=== PATIENT | male | born 1935 | race Caucasian/White ===

== ENCOUNTER 2017-04-16 08:04 | Emergency (ER) ==
[2017-04-16 08:10] VITALS: BP 112/70; TEMP 98.2
--- NOTE | 2017-04-16 08:38 | ED.PDOC ---
General ED Provider: Dr. CLEVE HINES JR Chief Complaint: Non-specific Complaint Stated Complaint: seen in er yesterday didn't stay the night signed out ama. today"you can do what you need so I can go home." in due to increased swelling friend states seen [place] 3 [place] ago gave him "3 shots and the swelling would go down but it hasn't." swelling to legs and abdomen distended. lasix 40mg IM last night[End]98.2 56 16 88% 112/70 230# in er last night dx chf refused to stay. back so "you can do what you need to fix me." edema has been worsening.[ End ]voiding "all night" 286.4 pounds Time Seen by Physician: 08:38 Mode of Arrival: Wheelchair Information Source: Patient Exam Limitations: Dementia Primary Care Provider: NAZ SUTHERLAND Nursing and Triage Documentation Reviewed and Agree: No Review of Systems - Review Of Systems Constitutional: Reports: Malaise, Weakness Eyes: Reports: No symptoms Ears, Nose, Mouth, Throat: Reports: No symptoms Respiratory: Reports: Short of air Cardiac: Reports: Edema GI: Reports: Abdomen distended : Reports: No symptoms, Frequency (note given lasis) Musculoskeletal: Reports: No symptoms Skin: Reports: No symptoms, Other (edema) Neurological: Reports: Cognitive dysfunction Endocrine: Reports: No symptoms Hematologic/Lymphatic: Reports: No symptoms All Other Systems: Other Past Medical History - Past Medical History Endocrine: Reports: DM 1, Dyslipidemia Cardiovascular: Reports: Hypertension, CHF, A-Fib Respiratory: Reports: None Hematological: Reports: None Gastrointestinal: Reports: None Genitourinary: Reports: None Neuro/Psych: Reports: None Musculoskeletal: Reports: Arthritis Cancer: Reports: None - Surgical History General Surgical History: Reports: Orthopedic ( left fore foot amputation) - Family History Family History: Reports: Other - Social History Smoking Status: Former smoker Hx Substance Use: No Alcohol Screening: None Physical Exam - Physical Exam Appearance: Ill-appearing, Obese Ill-appearing: Moderate Pain Distress: Mild Eyes: NATHALIA, EOMI, Conjunctiva clear Neck: Supple Respiratory: Airway patent, Breath sounds diminished, Rhonchi Cardiovascular: Irregular rhythm GI/: Nontender Musculoskeletal: Normal strength, ROM intact, No calf tenderness, Edema Skin: Warm, Dry Neurological: Sensation intact, Motor intact, Oriented Interpretation - Radiology Interpretation Radiology Interpretation By: Radiologist Radiology Results: Positive (04/15/17 atelectasis vs pneumonia and pleural effusion) - EKG Interpretation Time of EKG #1: 08:45 Rate: Normal Rhythm: Other (afib, old imi, ami, no change since 04/15/17) Ectopy: PVCs Victor: Left ST Segment: Normal EKG Comparison: No significant changes Physician Notification - Case Discussed Physician Notified: Ryann Time of [facility]: 11:42 [facility] Critical Care Note - Critical Care Note Total Time (mins): 40 Course - Course Hematology/Chemistry: 04/16/17 08:45 04/16/17 08:45 Orders, Labs, Meds: Lab Review 04/16/17 04/16/17 04/16/17 08:29 08:45 09:17 WBC 9.81 RBC 4.33 L Hgb 12.9 L Hct 39.1 L MCV 90.3 MCH 29.8 MCHC 33.0 RDW Coeff of Fabby 17.7 H Plt Count 199 Immature Gran % (Auto) 0.6 Neut % (Auto) 68.4 Lymph % (Auto) 14.0 Cassia % (Auto) 14.6 H Eos % (Auto) 1.6 Baso % (Auto) 0.8 Immature Gran # (Auto) 0.1 Neut # 6.7 Lymph # 1.4 Cassia # 1.4 Eos # 0.2 Baso # 0.1 Puncture Site Rr O2 Saturation 91.0 L ABG pH 7.446 ABG pCO2 40.0 ABG pO2 57.0 L* ABG HCO3 27.6 H ABG Total CO2 29 H ABG Base Excess 4 H Shon Test + FiO2 % 21.0 Sodium 149 H Potassium 3.9 Chloride 104 Carbon Dioxide 29 Anion Gap 19.9 BUN 58 H Creatinine 1.64 H Estimated GFR (MDRD) 41.00 BUN/Creatinine Ratio 35.36 Glucose 65 L D Calcium 9.1 Magnesium 2.3 H Total Bilirubin 1.66 H AST 16 ALT 18 Alkaline Phosphatase 99 Total Creatine Kinase 76 Troponin I 0.0530 B-Natriuretic Peptide 1204 H Total Protein 6.4 Albumin 3.6 Globulin 2.8 Albumin/Globulin Ratio 1.29 Urine Color Urine Clarity Urine pH Ur Specific Devine Urine Protein Urine Glucose (UA) Urine Ketones Urine Blood Urine Nitrite Urine Bilirubin Urine Urobilinogen Ur Leukocyte Esterase 04/16/17 10:40 WBC RBC Hgb Hct MCV MCH MCHC RDW Coeff of Fabby Plt Count Immature Gran % (Auto) Neut % (Auto) Lymph % (Auto) Cassia % (Auto) Eos % (Auto) Baso % (Auto) Immature Gran # (Auto) Neut # Lymph # Cassia # Eos # Baso # Puncture Site O2 Saturation ABG pH ABG pCO2 ABG pO2 ABG HCO3 ABG Total CO2 ABG Base Excess Shon Test FiO2 % Sodium Potassium Chloride Carbon Dioxide Anion Gap BUN Creatinine Estimated GFR (MDRD) BUN/Creatinine Ratio Glucose Calcium Magnesium Total Bilirubin AST ALT Alkaline Phosphatase Total Creatine Kinase Troponin I B-Natriuretic Peptide Total Protein Albumin Globulin Albumin/Globulin Ratio Urine Color Yellow Urine Clarity Clear Urine pH 6.5 Ur Specific Devine 1.015 Urine Protein Negative Urine Glucose (UA) Negative Urine Ketones Negative Urine Blood Negative Urine Nitrite Negative Urine Bilirubin Negative Urine Urobilinogen 0.2 Ur Leukocyte Esterase Negative Orders Category Date Time Status ABG DRAW REQUEST Stat CARDIO 04/16/17 08:29 Completed EKG-(ED ONLY) Stat CARDIO 04/16/17 08:28 Completed ED APPLY O2 .ONCE EMERGENCY 04/16/17 08:28 Active ED HOURLY SIGN LANGUAGE INTERPRETER APPLIED .ONCE EMERGENCY 04/16/17 08:28 Active ED IV/MEDIPORT/POWERPORT .ONCE EMERGENCY 04/16/17 08:28 Active ABG Stat LAB 04/16/17 08:29 Completed B-TYPE NATRIURETIC PEPTIDE Stat LAB 04/16/17 08:45 Completed CBC W/ AUTO DIFF Stat LAB 04/16/17 08:45 Completed COMPREHENSIVE METABOLIC PANEL Stat LAB 04/16/17 08:45 Completed CREATINE KINASE Stat LAB 04/16/17 08:45 Completed MAGNESIUM Stat LAB 04/16/17 09:17 Completed TROPONIN I Stat LAB 04/16/17 08:45 Completed UA [URINALYSIS C & S IF INDICATED] Stat LAB 04/16/17 10:40 Completed 0.9 % Sodium Chloride [Saline Flush] MEDS 04/16/17 08:28 Active 1 syr IVF PRN PRN Furosemide [Lasix] MEDS 04/16/17 09:17 Discontinued 40 mg IVP ONCE STA Medications Generic Name Dose Route Start Last Admin Trade Name Freq PRN Reason Stop Dose Admin Sodium Chloride 1 syr 04/16/17 08:28 04/16/17 09:34 Saline Flush IVF 1 syr PRN PRN Administration To flush IV Discontinued Medications Generic Name Dose Route Start Last Admin Trade Name Andi PRN Reason Stop Dose Admin Furosemide 40 mg 04/16/17 09:17 04/16/17 09:33 Lasix IVP 04/16/17 09:18 40 mg ONCE STA Administration Vital Signs: Temp Pulse Resp BP Pulse Ox 04/16/17 08:06 98.2 F 56 L 16 112/70 88 L ABEL Risk Score ABEL Risk Score: Risk Score Odds of by 30D 0 0.1 (0.1-0.2) 1 0.3 (0.2-0.3) 2 0.4 (0.3-0.5) 3 0.7 (0.6-0.9) 4 1.2 (1.0-1.5) 5 2.2 (1.9-2.6) 6 3.0 (2.5-3.6) 7 4.8 (3.8-6.1) Departure - Departure Time of Disposition: 11:41 Disposition: TSF SHORT-TRM HOSP Discharge Problem: CHF (congestive heart failure) Qualifiers: Congestive heart failure type: unspecified congestive heart failure type Congestive heart failure chronicity: acute on chronic Qualifier Code: (I50.9) Heart failure, unspecified Condition: Good Pt referred to PMD for follow-up: No (patietn refuses transfer) Allergies/Adverse Reactions: Allergies lisinopril Adverse Reaction (Verified 04/16/17 08:28) Home Medications: Ambulatory Orders Acetaminophen 1,000 mg PO TID 04/15/17 Amitriptyline HCl 25 mg PO BEDTIME 04/15/17 Amlodipine Besylate [Norvasc] 10 mg PO DAILY 04/15/17 Aspirin [Aspir-Low] 81 mg PO DAILY 04/15/17 Doxazosin Mesylate [Cardura] 4 mg PO BEDTIME 04/15/17 Ferrous Sulfate [Iron] 325 mg PO BID 04/15/17 Finasteride 5 mg PO DAILY 04/15/17 Insulin Glargine,Hum.rec.anlog [Lantus] 56 unit SUBCUT BEDTIME 04/15/17 Rosuvastatin Calcium [Crestor] 5 mg PO BEDTIME 04/15/17 Torsemide [Demadex] 20 mg PO QDAC 04/15/17
[2017-04-16 08:53] LABS: BASOPHILS # (AUTO) 0.1 K/uL (0-0.2); BASOPHILS % (AUTO) 0.8 % (0.0-3.0); EOSINOPHILS # (AUTO) 0.2 K/ul (0.0-0.7); EOSINOPHILS % (AUTO) 1.6 % (0.0-7.0); HEMATOCRIT 39.1 % (42.0-52.0); HEMOGLOBIN 12.9 g/dl (14.0-18.0); IMMATURE GRANULOCYTE % (AUTO) 0.6 % (0.0-5.0); LYMPHOCYTES # (AUTO) 1.4 K/uL (0.60-3.4); MEAN CORPUSCULAR HEMOGLOBIN 29.8 pg (27.0-31.0); MEAN CORPUSCULAR VOLUME 90.3 fl (80.0-94.0); MONOCYTES # (AUTO) 1.4 K/uL (0.4-2.0); MONOCYTES % (AUTO) 14.6 (0-10); NEUTROPHILS # (AUTO) 6.7 K/ul (2.0-6.9); NEUTROPHILS % (AUTO) 68.4; PLATELET COUNT 199 10^3/uL (140-440); RED BLOOD COUNT 4.33 10^6/ul (4.70-6.10); WHITE BLOOD COUNT 9.81 K/ul (4.2-10.2)
[2017-04-16 09:03] LABS: ABG PH 7.446 (7.35-7.45)
[2017-04-16 09:07] LABS: ABG BASE EXCESS 4 (-2.0-2.0); ABG HCO3 27.6 (22.0-26.0); ABG TCO2 29 (22.0-28.0)
[2017-04-16 09:12] VITALS: BMI 39.9
[2017-04-16 09:16] LABS: ALBUMIN 3.6 g/dL (3.4-5.0); ALBUMIN/GLOBULIN RATIO 1.29; ANION GAP 19.9; BILIRUBIN,TOTAL 1.66 mg/dL (0.00-1.20); BUN/CREATININE RATIO 35.36; CALCIUM 9.1 mg/dL (8.2-10.2); CREATININE 1.64 mg/dL (0.60-1.10); POTASSIUM 3.9 mmol/L (3.5-5.1); TOTAL PROTEIN 6.4 g/dL (5.8-8.1); TROPONIN I 0.053 ng/ml (0.0000-0.4000)
[2017-04-16] MEDS: LASIX IVP STA (09:33)
[2017-04-16 11:02] LABS: BILIRUBIN,URINE Negative (NEGATIVE); KETONES,URINE Negative (NEGATIVE); LEUKOCYTE ESTERASE ,URINE Negative (NEGATIVE); NITRITE,URINE Negative (NEGATIVE); PH,URINE 6.5 (5-9); PROTEIN,URINE Negative (NEGATIVE); URINE, BLOOD Negative (NEGATIVE)
[2017-04-16 11:11] LABS: ADD URINE MICROSCOPIC NO
[2017-04-16] MEDS ORDERED: TYLENOL PO PRN (11:51)
[2017-04-16] MEDS ORDERED: LASIX IVP SCH (14:00)
[2017-04-16] MEDS ORDERED: LANTUS SUBCUT SCH (21:00)
[2017-04-16] MEDS ORDERED: CRESTOR PO SCH (21:00)
[2017-04-16] MEDS ORDERED: FERROUS SULFATE PO SCH (21:00)
[2017-04-16] MEDS ORDERED: DOXAZOSIN MESYLATE 4 MG PO SCH (21:00)
[2017-04-16] MEDS ORDERED: CARDURA PO SCH (21:00)
[2017-04-16] MEDS ORDERED: NON-FORMULARY MEDICATION (Rosuvastatin Calcium [Crestor] 5 MG) PO SCH ×22 (21:00)
[2017-04-16] MEDS ORDERED: NON-FORMULARY MEDICATION (Ferrous Sulfate [Iron] 325 MG) PO SCH ×22 (21:00)
[2017-04-16] MEDS ORDERED: ELAVIL PO SCH (21:00)
[2017-04-17] MEDS ORDERED: DEMADEX PO SCH (06:30)
[2017-04-17] MEDS ORDERED: PROSCAR PO SCH (09:00)
[2017-04-17] MEDS ORDERED: ASPIRIN EC PO SCH (09:00)
[2017-04-17] MEDS ORDERED: NORVASC PO SCH (09:00)
[2017-04-17] MEDS ORDERED: NON-FORMULARY MEDICATION (Amlodipine Besylate [Norvasc] 10 MG) PO SCH ×22 (09:00)
== END 2017-04-16 12:45 | disposition left against medical advice (07) ==
LOC: ED 08:04 → MEDSURG B 11:53 → UNDOADMIN 11:53 → ED 12:45
DX: I50.9 Heart failure, unspecified (principal); R35.0 Frequency of micturition; E10.9 Type 1 diabetes mellitus without complications; E78.5 Hyperlipidemia, unspecified; I48.91 Unspecified atrial fibrillation; I10 Essential (primary) hypertension; Z79.899 Other long term (current) drug therapy
CPT/HCPCS: 36415; 80053; 81001; 82550; 82803; 83735; 83880; 84484; 85025; 93005; 93010; 96374; 99284

== ENCOUNTER 2017-07-20 12:09 | Inpatient (IN) ==
[2017-07-20 13:14] LABS: BASOPHILS # (AUTO) 0.1 K/uL (0-0.2); BASOPHILS % (AUTO) 0.8 % (0.0-3.0); EOSINOPHILS # (AUTO) 0.2 K/ul (0.0-0.7); EOSINOPHILS % (AUTO) 1.6 % (0.0-7.0); HEMATOCRIT 42.2 % (42.0-52.0); IMMATURE GRANULOCYTE % (AUTO) 1.2 % (0.0-5.0); LYMPHOCYTES # (AUTO) 1.1 K/uL (0.60-3.4); LYMPHOCYTES % (AUTO) 10.4 (10.0-50.0); MEAN CORPUSCULAR HEMOGLOBIN 29.9 pg (27.0-31.0); MEAN CORPUSCULAR HGB CONC 33.2 (31.8-35.4); MONOCYTES # (AUTO) 1.5 K/uL (0.4-2.0); MONOCYTES % (AUTO) 13.5 (0-10); NEUTROPHILS # (AUTO) 7.9 K/ul (2.0-6.9); NEUTROPHILS % (AUTO) 72.5; PLATELET COUNT 211 10^3/uL (140-440); RED BLOOD COUNT 4.69 10^6/ul (4.70-6.10); WHITE BLOOD COUNT 10.88 K/ul (4.2-10.2)
[2017-07-20 13:30] LABS: PARTIAL THROMBOPLASTIN TIME 29.2 SEC (23.9-40.0); PROTHROMBIN TIME 13.8 SEC (9.3-11.0)
[2017-07-20 13:40] LABS: ALBUMIN 3.5 g/dL (3.4-5.0); ANION GAP 10.1; BILIRUBIN,TOTAL 1.67 mg/dL (0.00-1.20); BUN/CREATININE RATIO 25.68; CALCIUM 9.3 mg/dL (8.2-10.2); CREATININE 1.09 mg/dL (0.60-1.10); POTASSIUM 4.1 mmol/L (3.5-5.1); TROPONIN I 0.033 ng/ml (0.0000-0.4000)
--- NOTE | 2017-07-20 13:51 | US ---
EXAM: ULTRASOUND LOWER EXTREMITY VENOUS DOPPLER EXAM HISTORY: Leg pain. FINDINGS: Bilateral lower extremity venous Doppler exam. Real time dee-scale, Doppler spectral anal ysis and color-flow Doppler imaging performed. The veins targeted for evaluation include the common femoral, greater saphenous, profundus, femoral, popliteal, peroneal, anterior tibial and posterior ti bial. The evaluated veins demonstrated normal spontaneous flow and compression without evidence of thrombosis. Subcutaneous edema is apparent. IMPRESSION: No venous thrombosis identified within the areas evaluated.
--- NOTE | 2017-07-20 14:08 | CT ---
Exam: CT of the abdomen pelvis without intravenous contrast. Comparison: None available. Reason for exam: Abdominal distension. FINDINGS: Image interpretation is limited by the lack of intravenous contrast administration. There is a large right-sided and moderately sized left-sided pleural effusion with overlying atelecta sis and pneumonia. Please see CT examination of the chest performed on the same day for further nicci acterization. There is a moderate amount of intra-abdominal ascites. The liver, spleen, and pancreas appear grossly unremarkable within limitations of a noncontrasted CT examination. The gallbladder has a hazy appearance. Low density nodule is seen in the left adrenal gland measuring approximately 2 cm likely an adenoma. Nonspecific inflammatory changes are seen in the region of the melissa hepatis and proximal duodenum. No focal small bowel dilatation or transition point. The appendix is not well seen on the examination. 5.3 cm right renal hypodensity without hydronephrosis, hydroureter, or nephrolithiasis in either kidn ey. There is a [id number] amount of pelvic free fluid. No intra-abdominal free air. Diffuse anasarca is seen within the subcutaneous soft tissues. Atherosclerotic disease is seen within the aorta and distal arterial vasculature. Prominent appearing lymph nodes are seen in the para aortic and melissa hepatic regions. No suspicious appearing osteoblastic or osteolytic lesions. Degenerative disease is seen in the lumbosacral spine. Impression: 1. Large right-sided and moderately sized left-sided pleural effusions of overlying atelectasis and pneumonia. 2. Abdominal ascites of unknown etiology that is incompletely evaluated without intravenous contrast . 3. The gallbladder has a hazy appearance which may be accentuated by the abdominal ascites and lack of intravenous contrast. If clinical concern exists for gallbladder pathology, ultrasound evaluation may be performed. 4. Nonspecific inflammatory changes in the region of the proximal duodenum. Imaging findings may re present a duodenitis or enteritis. 5. Nonspecific prominent abdominal and periportal lymph nodes. Imaging findings can be seen with inf ection, inflammation, reactivity, and neoplasia. Recommend follow-up evaluation to document resoluti on 6. Anasarca and degenerative disease. Report faxed at 14 a 3 hours on 07/20/2017
--- NOTE | 2017-07-20 14:10 | CT ---
EXAM: CT ABDOMEN AND PELVIS HISTORY: Cough TECHNIQUE: CT abdomen and pelvis without intravenous contrast. Images were reconstructed using 5 mm section thickness. Reformations were prepared. COMPARISON: None FINDINGS: Heart size upper limit normal. Tiny pericardial effusion. Mild to moderate aortic atherosclerosis. Scattered nonspecific mediastinal and hilar lymph nodes. Small left pleural effusion. Moderate right pleural effusion. Bilateral adjacent airspace consolida tions are mild to moderate. Mild pulmonary vascular congestion with no noticeable central interstiti al edema. No pneumothorax. There is a 0.41 cm noncalcified nodule in the lateral left lower lobe. 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 See also same day CT abdomen and pelvis report. IMPRESSION: 1. Bilateral pleural effusions, moderate in volume on the right. Adjacent consolidations may repres ent atelectasis or pneumonia. 2. Indeterminate 0.41 cm left lung base nodule. 3. Pulmonary vascular congestion and upper limit normal heart size. 4. Nonspecific mediastinal lymph nodes.
[2017-07-20] MEDS ORDERED: LASIX IVP STA (14:25)
[2017-07-20] MEDS ORDERED: VANCOMYCIN 1 GM in SODIUM CHLORIDE 250 ML IV STA (14:27)
[2017-07-20] MEDS ORDERED: ROCEPHIN 2 GM in SODIUM CHLORIDE 100 ML IV STA (14:27)
[2017-07-20] MEDS ORDERED: HUMULIN R SUBCUT STA (14:30)
--- NOTE | 2017-07-20 14:36 | ED.PDOC ---
General ED Provider: Dr. ROSEMARIE GUARDADO Chief Complaint: Hypoglycemia Stated Complaint: hypoglycemia Time Seen by Physician: 12:10 (was found confused blood sugar was 40 ) Mode of Arrival: Ambulance Information Source: Patient, EMT Primary Care Provider: NAZ [place] Nursing and Triage Documentation Reviewed and Agree: Yes (pt stated he knew his sugar was dropping b/ he could not get to food ) Endocrine Complaint Exam - Diabetic Complication Complaint/Exam Onset/Duration: 20 min prior to arrival . arrived AOX3 Symptoms Are: Resolved Timing: Intermittent Initial Severity: Mild Current Severity: None Character: Confused Aggravating: Reports: Diet change Alleviating: Reports: Medications Associated Signs and Symptoms: Reports: Polydipsia, Polyuria, Polyphagia, Nausea. Denies: Decreased LOC, Weight loss, Abdominal pain, Vomiting, Fever, Diaphoresis, Fruity breath Related History: Reports: Similar episode, Insulin requiring Cardiac Risk Factors: Reports: DM, Elevated lipids, CHF CVA Risk Factors: Reports: DM, Hypertension, PVD Serious Bacterial Infection Risk Factors: Reports: None Related Surgical History: Reports: None Acetone on Breath: No Dry Mucous Membranes: No Kussmaul Respirations: No Glascow Coma Scale (see protocol): 15 Meningeal Signs: No Focal Weakness: None Focal Sensory Loss: None Gait: Unable Nystagmus Present: No Gag Reflex Present: Yes Babinski Sign: Negative Right, Negative Left Heel to Toe Normal: No Differential Diagnoses: Diabetic Ketoacidosis, Hyperosmolar State, Hypoglycemia , Hyperglycemia, Sepsis Quality Indicator For Non-Traumatic Chest Pain/Syncope: EKG Performed Review of Systems - Review Of Systems Constitutional: Reports: Malaise Eyes: Reports: No symptoms Ears, Nose, Mouth, Throat: Reports: No symptoms Respiratory: Reports: No symptoms Cardiac: Reports: No symptoms GI: Reports: No symptoms : Reports: No symptoms Musculoskeletal: Reports: No symptoms Skin: Reports: Other (SEE PHOTOS) Neurological: Reports: No symptoms Endocrine: Reports: No symptoms Hematologic/Lymphatic: Reports: No symptoms All Other Systems: Reviewed and Negative Past Medical History - Past Medical History Endocrine: Reports: DM 1, Dyslipidemia Cardiovascular: Reports: Hypertension, CHF, A-Fib Respiratory: Reports: None Hematological: Reports: None Gastrointestinal: Reports: None Genitourinary: Reports: None Neuro/Psych: Reports: None Musculoskeletal: Reports: Arthritis Cancer: Reports: None - Surgical History General Surgical History: Reports: Orthopedic (htn dm chol afib arth left foot partial amputation) - Family History Family History: Reports: Other - Social History Smoking Status: Former smoker Hx Substance Use: No Alcohol Screening: None Physical Exam - Physical Exam Appearance: Well-appearing, No pain distress, Well-nourished Ill-appearing: Moderate Pain Distress: Moderate (3PLUS EDEMA LOWER LEG) Eyes: NATHALIA, EOMI, Conjunctiva clear ENT: Ears normal, Nose normal, Oropharynx normal Respiratory: Airway patent, Breath sounds clear, Breath sounds equal, Respirations nonlabored Cardiovascular: RRR, Pulses normal, No rub, No murmur GI/: Soft, Nontender, No masses, Bowel sounds normal, No Organomegaly Musculoskeletal: Limited ROM (LEFT LOWER LEG AMPUTATION ) Skin: Warm, Dry, Normal color Neurological: Sensation intact, Motor intact, Reflexes intact, Cranial nerves intact, Alert, Oriented Psychiatric: Affect appropriate, Mood appropriate Interpretation - Radiology Interpretation Radiology Interpretation By: Radiologist Radiology Results: Positive (PELVIC FLUID NEGATIVE DVT) Physician Notification - Case Discussed Physician Notified: MULLEN Time of Notification: 14:39 (PT REFUSED TO BE TRANSFERED TO [facility] PRESENT ESTEPHANIA HANDLEY) Admit To: Inpatient Critical Care Note - Critical Care Note Total Time (mins): 0 Course - Course Hematology/Chemistry: 07/20/17 12:50 07/20/17 12:50 Orders, Labs, Meds: Lab Review 07/20/17 07/20/17 07/20/17 12:50 12:50 12:50 WBC 10.88 H RBC 4.69 L Hgb 14.0 Hct 42.2 MCV 90.0 MCH 29.9 MCHC 33.2 RDW Coeff of Fabby 19.9 H Plt Count 211 Immature Gran % (Auto) 1.2 Neut % (Auto) 72.5 Lymph % (Auto) 10.4 Tift % (Auto) 13.5 H Eos % (Auto) 1.6 Baso % (Auto) 0.8 Immature Gran # (Auto) 0.1 Neut # 7.9 H Lymph # 1.1 Tift # 1.5 Eos # 0.2 Baso # 0.1 PT INR APTT Sodium 140 Potassium 4.1 Chloride 107 Carbon Dioxide 27 Anion Gap 10.1 BUN 28 H Creatinine 1.09 Estimated GFR (MDRD) 65.00 BUN/Creatinine Ratio 25.68 Glucose 93 Lactic Acid 15.1 Calcium 9.3 Total Bilirubin 1.67 H AST 14 L ALT 12 Alkaline Phosphatase 143 H Total Creatine Kinase 35 Troponin I 0.0330 Total Protein 7.0 Albumin 3.5 Globulin 3.5 Albumin/Globulin Ratio 1.00 07/20/17 12:50 WBC RBC Hgb Hct MCV MCH MCHC RDW Coeff of Fabby Plt Count Immature Gran % (Auto) Neut % (Auto) Lymph % (Auto) Tift % (Auto) Eos % (Auto) Baso % (Auto) Immature Gran # (Auto) Neut # Lymph # Tift # Eos # Baso # PT 13.8 H INR 1.36 APTT 29.2 Sodium Potassium Chloride Carbon Dioxide Anion Gap BUN Creatinine Estimated GFR (MDRD) BUN/Creatinine Ratio Glucose Lactic Acid Calcium Total Bilirubin AST ALT Alkaline Phosphatase Total Creatine Kinase Troponin I Total Protein Albumin Globulin Albumin/Globulin Ratio Orders Category Date Time Status ABG DRAW REQUEST Stat CARDIO 07/20/17 14:25 Ordered EKG-(ED ONLY) Stat CARDIO 07/20/17 12:22 Completed ED ACCUCHECK ASSESSMENT .ONCE EMERGENCY 07/20/17 12:22 Active ABG Stat LAB 07/20/17 14:25 Ordered BLOOD CULTURE Stat LAB 07/20/17 12:35 Received CBC W/ AUTO DIFF Stat LAB 07/20/17 12:50 Completed COMPREHENSIVE METABOLIC PANEL Stat LAB 07/20/17 12:50 Completed CREATINE KINASE Stat LAB 07/20/17 12:50 Completed LACTIC ACID Stat LAB 07/20/17 12:50 Completed PARTIAL THROMBOPLASTIN TIME Stat LAB 07/20/17 12:50 Completed PROCALCITONIN Stat LAB 07/20/17 12:50 Received PT WITH INR Stat LAB 07/20/17 12:50 Completed TROPONIN I Stat LAB 07/20/17 12:50 Completed Amlodipine Besylate [Norvasc] MEDS 07/21/17 09:00 Ordered 10 mg PO DAILY Aspirin [Aspirin EC] MEDS 07/21/17 09:00 Ordered 81 mg PO DAILY Ceftriaxone Sodium [Rocephin] 2 gm MEDS 07/20/17 14:27 Active 0.9 % Sodium Chloride [Sodium Chloride] 100 ml IV ONCE Doxazosin Mesylate [Cardura] MEDS 07/20/17 21:00 Ordered 4 mg PO BEDTIME Furosemide [Lasix] MEDS 07/20/17 14:25 Discontinued 40 mg IVP ONCE STA Insulin Regular, Human [Humulin R] MEDS 07/20/17 14:30 Stat See Protocol SUBCUT ONCE STA Rosuvastatin Calcium [Crestor] MEDS 07/20/17 21:00 Ordered 5 mg PO BEDTIME Spironolactone [Aldactone] MEDS 07/20/17 21:00 Ordered 25 mg PO BID Torsemide [Demadex] MEDS 07/21/17 06:30 Ordered 20 mg PO QDAC Vancomycin HCl [Vancomycin] 1 gm MEDS 07/20/17 14:27 Active 0.9 % Sodium Chloride [Sodium Chloride] 250 ml IV ONCE CHEST, 1V AP ONLY Stat RADS 07/20/17 12:[address] ABDOMEN/PELVIS WO CONTRAST Stat RADS 07/20/17 12:[address] CHEST W/O CONTRAST Stat RADS 07/20/17 12:30 Completed U/S VENOUS SCAN GENNA LEGS Stat RADS 07/20/17 12:23 Completed Medications Generic Name Dose Route Start Last Admin Trade Name Freq PRN Reason Stop Dose Admin Aspirin 81 mg 07/21/17 09:00 Aspirin Ec PO DAILY [facility] Ceftriaxone Sodium 2 gm/ 100 mls @ 100 mls/hr 07/20/17 14:27 Sodium Chloride IV 07/20/17 15:26 ONCE STA Vancomycin HCl 1 gm/ Sodium 250 mls @ 250 mls/hr 07/20/17 14:27 Chloride IV 07/20/17 15:26 ONCE STA Non-Formulary Medication 10 mg 07/21/17 09:00 Amlodipine Besylate [Norvasc] PO DAILY ANGELI Non-Formulary Medication 4 mg 07/20/17 21:00 Doxazosin Mesylate [Cardura] PO BEDTIME ANGELI Non-Formulary Medication 5 mg 07/20/17 21:00 Rosuvastatin Calcium [Crestor] PO BEDTIME ANGELI Spironolactone 25 mg 07/20/17 21:00 Aldactone PO BID ANGELI Torsemide 20 mg 07/21/17 06:30 Demadex PO QDAC ANGELI Discontinued Medications Generic Name Dose Route Start Last Admin Trade Name Freq PRN Reason Stop Dose Admin Furosemide 40 mg 07/20/17 14:25 Lasix IVP 07/20/17 14:26 ONCE STA Insulin Human Regular 0 unit 07/20/17 14:30 Humulin R SUBCUT 07/20/17 14:31 ONCE STA Protocol Vital Signs: Temp Pulse Resp BP Pulse Ox 07/20/17 12:10 97.0 F L 93 H 20 148/106 H 94 L Departure - Departure Time of Disposition: 14:39 Disposition: ADMITTED INPATIENT Discharge Problem: Hypoglycemia Cellulitis Qualifiers: Site of cellulitis: extremity Site of cellulitis of extremity: lower extremity Laterality: left Qualified Code(s): L03.116 - Cellulitis of left lower limb Instructions: Cellulitis (ED) Condition: Good Pt referred to PMD for follow-up: Yes Additional Instructions: Please call your Family Physician as soon as possible to schedule a follow-up appointment. Allergies/Adverse Reactions: Allergies lisinopril Adverse Reaction (Verified 07/20/17 12:19) Home Medications: Ambulatory Orders Acetaminophen 1,000 mg PO TID 04/15/17 Amitriptyline HCl 25 mg PO BEDTIME 04/15/17 Amlodipine Besylate [Norvasc] 10 mg PO DAILY 04/15/17 Aspirin [Aspir-Low] 81 mg PO DAILY 04/15/17 Doxazosin Mesylate [Cardura] 4 mg PO BEDTIME 04/15/17 Ferrous Sulfate [Iron] 325 mg PO BID 04/15/17 Finasteride 5 mg PO DAILY 04/15/17 Insulin Glargine,Hum.rec.anlog [Lantus] 56 unit SUBCUT BEDTIME 04/15/17 Rosuvastatin Calcium [Crestor] 5 mg PO BEDTIME 04/15/17 Torsemide [Demadex] 20 mg PO QDAC 04/15/17
[2017-07-20] MEDS ORDERED: ROCEPHIN ONE (14:38)
[2017-07-20 14:39] LABS: ABG BASE EXCESS -2 (-2.0-2.0); ABG HCO3 23.5 (22.0-26.0); ABG PCO2 39.9 mmHg (35-45); ABG PH 7.378 (7.35-7.45); ABG TCO2 25 (22.0-28.0)
[2017-07-20] MEDS ORDERED: SODIUM CHLORIDE 1,000 ML IV SCH (15:00)
[2017-07-20 16:04] VITALS: BMI 33.5
[2017-07-20] MEDS ORDERED: VASOTEC IV IVP PRN (16:06)
[2017-07-20] MEDS ORDERED: TORADOL ONE (18:14)
[2017-07-20] MEDS: TORADOL IVP SCH ×2 (18:18→20:06)
[2017-07-20] MEDS: HUMULIN R SUBCUT PRN ×2 (18:56→20:06)
[2017-07-20] MEDS: CARDURA PO SCH (20:05)
[2017-07-20] MEDS: ALDACTONE PO SCH (20:06)
[2017-07-20] MEDS: CRESTOR PO SCH (20:06)
[2017-07-20] MEDS: ELIQUIS PO SCH (20:06)
[2017-07-20] MEDS ORDERED: DOXAZOSIN MESYLATE 4 MG PO SCH (21:00)
[2017-07-20] MEDS ORDERED: NON-FORMULARY MEDICATION (Rosuvastatin Calcium [Crestor] 5 MG) PO SCH ×22 (21:00)
[2017-07-20 21:33] LABS: TROPONIN I 0.025 ng/ml (0.0000-0.4000)
[2017-07-21] MEDS: TORADOL IVP SCH ×3 (04:58→20:37)
[2017-07-21 05:46] LABS: BASOPHILS # (AUTO) 0.1 K/uL (0-0.2); EOSINOPHILS # (AUTO) 0.7 K/ul (0.0-0.7); EOSINOPHILS % (AUTO) 5.9 % (0.0-7.0); HEMATOCRIT 39.4 % (42.0-52.0); HEMOGLOBIN 13.2 g/dl (14.0-18.0); IMMATURE GRANULOCYTE % (AUTO) 0.7 % (0.0-5.0); LYMPHOCYTES # (AUTO) 1.4 K/uL (0.60-3.4); LYMPHOCYTES % (AUTO) 12.1 (10.0-50.0); MEAN CORPUSCULAR HEMOGLOBIN 30.3 pg (27.0-31.0); MEAN CORPUSCULAR HGB CONC 33.5 (31.8-35.4); MEAN CORPUSCULAR VOLUME 90.6 fl (80.0-94.0); MONOCYTES # (AUTO) 1.5 K/uL (0.4-2.0); MONOCYTES % (AUTO) 13.3 (0-10); NEUTROPHILS # (AUTO) 7.7 K/ul (2.0-6.9); PLATELET COUNT 183 10^3/uL (140-440); RED BLOOD COUNT 4.35 10^6/ul (4.70-6.10); WHITE BLOOD COUNT 11.47 K/ul (4.2-10.2)
[2017-07-21] MEDS: LASIX IVP SCH (05:51)
[2017-07-21 06:16] LABS: ALBUMIN/GLOBULIN RATIO 0.97; ANION GAP 13.7; BILIRUBIN,TOTAL 1.39 mg/dL (0.00-1.20); BUN/CREATININE RATIO 28.82; CALCIUM 8.9 mg/dL (8.2-10.2); CREATININE 1.11 mg/dL (0.60-1.10); POTASSIUM 4.7 mmol/L (3.5-5.1); TOTAL PROTEIN 6.1 g/dL (5.8-8.1)
[2017-07-21 06:24] LABS: TROPONIN I 0.034 ng/ml (0.0000-0.4000)
[2017-07-21] MEDS ORDERED: DEMADEX PO SCH (06:30)
[2017-07-21] MEDS ORDERED: SILVADENE CREAM TP SCH (09:00)
[2017-07-21] MEDS ORDERED: NON-FORMULARY MEDICATION (Amlodipine Besylate [Norvasc] 10 MG) PO SCH ×22 (09:00)
[2017-07-21] MEDS ORDERED: NORVASC PO SCH (09:00)
[2017-07-21] MEDS: ROCEPHIN 1 GM in SODIUM CHLORIDE 50 ML IV SCH (09:22)
[2017-07-21] MEDS: ASPIRIN EC PO SCH (10:46)
[2017-07-21] MEDS: COZAAR PO SCH (10:47)
[2017-07-21] MEDS: ELIQUIS PO SCH ×2 (10:47→20:37)
[2017-07-21] MEDS: ALDACTONE PO SCH ×2 (10:48→20:37)
[2017-07-21] MEDS: VANCOMYCIN 1 GM in SODIUM CHLORIDE 250 ML IV SCH ×2 (10:48→20:16)
--- NOTE | 2017-07-21 11:22 | US ---
EXAM: ULTRASOUND ABDOMEN LIMITED HISTORY: Ascites FINDINGS: Ultrasound abdomen, limited. Galeas-scale ultrasound and color Doppler was performed. Live r size measures about 14 cm, within normal limits. Cirrhotic appearance of the liver without obvious focal lesion or intrahepatic biliary dilatation. The main portal vein is patent and hepatopedal. A few tiny gallstones are present. Gallbladder wall is thickened at 0.51 cm. Common bile duct diame ter upper limit normal at about 0.6 cm. There is at least a small amount of abdominal ascites. Inci dental note of a simple right renal cortical cyst measuring 5 cm. IMPRESSION: 1. Hepatic cirrhosis with ascites. 2. A few tiny gallstones. Gallbladder wall thickening is present which may be related to the patien t's liver disease or conceivably cholecystitis. Correlate clinically. Common bile duct diameter with in normal limits.
--- NOTE | 2017-07-21 13:16 | PCM.PROG ---
Attending Provider: [facility] DATE OF SERVICE: 07/21/17 SUBJECTIVE: This 82 year old WHITE/ M was hospitalized 07/20/17. The patient was admitted with hypoglycemia. He has been off Lantus and put on sliding scale. Hypoglycemia has resolved. REVIEW OF SYSTEMS: CONSTITUTIONAL: No night sweats. No fatigue, malaise, lethargy. No fever or chills. HEENT: Eyes: No visual changes. No eye pain. No eye discharge. ENT: No runny nose. No epistaxis. No sinus pain. No odynophagia. No congestion. RESPIRATORY: No cough, no congestion. No hemoptysis. No shortness of breath. CARDIOVASCULAR: No angina symptoms. No CHF symptoms. No atypical chest pain for CAD. No palpitations. No orthopnea.. GASTROINTESTINAL: No abdominal pain. No nausea or vomiting. No diarrhea or constipation. No hematemesis. No hematochezia. GENITOURINARY: No urgency. No frequency. No dysuria. No hematuria. No obstructive symptoms. No discharge. No pain. No significant abnormal bleeding. MUSCULOSKELETAL: No musculoskeletal pain; no joint swelling. NEUROLOGICAL: Awake, alert, oriented to time, place and person. No headache. No neck pain. No syncope. No seizures. No dizziness. PSYCHIATRIC: Not anxious. No depression. No suicidal thoughts. No homicidal thoughts. SKIN: No rash. Ulcerations present on admission to bilateral extremities present on admission, superficial, Stage 2. ENDOCRINE: No unexplained weight loss. No weight gain. HEMATOLOGIC/LYMPHATIC: No anemia. No purpura. No petechiae. No prolonged or excessive bleeding. No palpable lymph nodes. PHYSICAL EXAMINATION: GENERAL: The patient is awake, alert and oriented, lying in bed in no distress. VITAL SIGNS: Temperature 98.4 F, Pulse 68, Respiratory Rate 21, BP 135/70, Pulse Ox 94% HEENT: Head normocephalic, atraumatic. Eyes: Extraocular muscles are intact. Pupils are equal, round and reactive to light and accommodation. Ears: Hard of hearing. No lesions. Nose appeared normal. Throat: No exudate or erythema. NECK: Supple. No JVD, no carotid bruit. No lymphadenopathy or thyromegaly. LUNGS: Decreased breath sounds. Clear to auscultation. Percussion note normal. Chest symmetrical. HEART: S1, S2, no S3. No murmurs. No cyanosis or clubbing. Ascites positive + 2. Pulses: Dorsalis pedis and posterior tibial pulses +1 to +2 both sides. ABDOMEN: Soft. Non-tender. Bowel sounds active. No CVA tenderness. No mass felt. EXTREMITIES: +1 pedal edema, much less than before; no oozing of water. He has hyperpigmentation from chronic edema. Ulcers have been dressed and cleaned. Full range of motion of all extremities, equal. NEUROLOGIC: No focal deficit. Cranial nerves II through XII are grossly intact. No headache, no double vision or headache. SKIN: Not dry. Intact. Turgor-normal. Multiple ulcerations present on admission to right calf, left lower calf, left mid calf and left upper calf, all are clean and dressed. Hyperpigmentation is noted from chronic edema. LYMPHATIC: No palpable lymph nodes/no lymphedema. MUSCULOSKELETAL: Normal joints with no swelling. Muscle tone is normal. LAB REVIEW: 07/21/17 04:34 07/21/17 04:34 07/21/17 04:34: Sodium 141, Potassium 4.7, Chloride 108 H, Carbon Dioxide 24, Anion Gap 13.7, BUN 32 H, Creatinine 1.11 H, Estimated GFR (MDRD) 64.00, BUN/ Creatinine Ratio 28.82, Glucose 94, Calcium 8.9, Total Bilirubin 1.39 H, AST 13 L, ALT 11 L, Alkaline Phosphatase 125 H, Total Protein 6.1, Albumin 3.0 L, Globulin 3.1, Albumin/Globulin Ratio 0.97 07/21/17 04:34: WBC 11.47 H, RBC 4.35 L, Hgb 13.2 L, Hct 39.4 L, MCV 90.6, MCH 30.3, MCHC 33.5, RDW Coeff of Fabby 20.0 H, Plt Count 183, Immature Gran % (Auto) 0.7, Neut % (Auto) 67.0, Lymph % (Auto) 12.1, Den[place] % (Auto) 13.3 H, Eos % (Auto ) 5.9, Baso % (Auto) 1.0, Immature Gran # (Auto) 0.1, Neut # 7.7 H, Lymph # 1.4 , Denali # 1.5, Eos # 0.7, Baso # 0.1 07/21/17 04:34: Total Creatine Kinase 32, Troponin I 0.0340 07/20/17 20:45: Total Creatine Kinase 35, Troponin I 0.0250 ASSESSMENT: 1. Hypoglycemia 2. Peripheral arterial disease 3. Partial amputation of left foot 4. Ulcers on left leg and one ulcer on the right, more or less superficial, Stage 2 and present on admission. The legs look much better today. The ulcerations 5. Ascites with likely liver cirrhosis. No history of alcohol abuse. Likely cause is CHF and/or hepatic steatosis 6. Chronic lung disease 7. Dyslipidemia 8. Atrial fibrillation 9. Noncompliance with BMI 34 10. Hypertension PLAN: 1. T4 and TSH are normal. BUN and creatinine are acceptable. 2. Will do echo 3. A1C 4. Continue Vancomycin 1 gm twice a day 5. Continue Rocephin 1 gm daily 6. Silvadene ointment to ulcerations 7. Keep legs elevated 8. Continue Aldactone and Lasix 9. The patient is off Norvasc due to edema. He is on Cozaar. 10. Accu-cheks Plan and coordination of the patient's care discussed in the presence of Certifed Refrigeration Operator and nurse. EDUCATION: Education carried out about diabetes, ulcers, peripheral arterial disease. The patient is advised to keep the legs up. CONDITION: Stable PROGNOSIS: Poor considering noncompliance and ignorance. SCRIBED BY: FATOUMATA RECINOS Glazier Apprentice scribed while in presence of service performed by Dr. [facility]IANNI [facility] on 07/21/17 ([id number])
[2017-07-21] MEDS: HUMULIN R SUBCUT PRN ×2 (17:35→20:16)
[2017-07-21] MEDS: LOTRISONE 15 GM TP SCH (17:36)
[2017-07-21] MEDS: SILVADENE CREAM TP SCH (17:37)
[2017-07-21] MEDS: CARDURA PO SCH (20:37)
[2017-07-21] MEDS: CRESTOR PO SCH (20:37)
[2017-07-22] MEDS: TORADOL IVP SCH ×3 (04:25→20:22)
[2017-07-22 04:27] LABS: BASOPHILS # (AUTO) 0.1 K/uL (0-0.2); BASOPHILS % (AUTO) 1.4 % (0.0-3.0); EOSINOPHILS % (AUTO) 10.4 % (0.0-7.0); HEMATOCRIT 38.4 % (42.0-52.0); HEMOGLOBIN 12.6 g/dl (14.0-18.0); IMMATURE GRANULOCYTE % (AUTO) 0.6 % (0.0-5.0); LYMPHOCYTES # (AUTO) 1.7 K/uL (0.60-3.4); LYMPHOCYTES % (AUTO) 17.5 (10.0-50.0); MEAN CORPUSCULAR HEMOGLOBIN 30.1 pg (27.0-31.0); MEAN CORPUSCULAR HGB CONC 32.8 (31.8-35.4); MEAN CORPUSCULAR VOLUME 91.9 fl (80.0-94.0); MONOCYTES # (AUTO) 1.4 K/uL (0.4-2.0); MONOCYTES % (AUTO) 14.3 (0-10); NEUTROPHILS # (AUTO) 5.5 K/ul (2.0-6.9); NEUTROPHILS % (AUTO) 55.8; PLATELET COUNT 190 10^3/uL (140-440); RED BLOOD COUNT 4.18 10^6/ul (4.70-6.10); WHITE BLOOD COUNT 9.86 K/ul (4.2-10.2)
[2017-07-22 04:44] LABS: ALBUMIN 2.9 g/dL (3.4-5.0); ALBUMIN/GLOBULIN RATIO 1.07; ANION GAP 12.1; BILIRUBIN,TOTAL 1.05 mg/dL (0.00-1.20); BUN/CREATININE RATIO 30.4; CALCIUM 8.8 mg/dL (8.2-10.2); CREATININE 1.25 mg/dL (0.60-1.10); POTASSIUM 5.1 mmol/L (3.5-5.1); TOTAL PROTEIN 5.6 g/dL (5.8-8.1)
[2017-07-22] MEDS: HUMULIN R SUBCUT PRN ×4 (05:55→20:36)
[2017-07-22] MEDS: LASIX IVP SCH (05:55)
[2017-07-22] MEDS: LOTRISONE 15 GM TP SCH ×2 (05:56→17:18)
[2017-07-22] MEDS: SILVADENE CREAM TP SCH ×2 (05:56→17:18)
[2017-07-22] MEDS: ROCEPHIN 1 GM in SODIUM CHLORIDE 50 ML IV SCH (08:30)
[2017-07-22] MEDS: VANCOMYCIN 1 GM in SODIUM CHLORIDE 250 ML IV SCH ×2 (09:12→20:22)
[2017-07-22] MEDS: ELIQUIS PO SCH ×2 (09:12→20:21)
[2017-07-22] MEDS: ALDACTONE PO SCH ×2 (09:12→20:25)
[2017-07-22] MEDS: COZAAR PO SCH (09:13)
[2017-07-22] MEDS: ASPIRIN EC PO SCH (09:13)
--- NOTE | 2017-07-22 10:17 | PCM.PROG ---
Attending Provider: [facility]ENDING [facility] This patient is seen with Crystal Gayle, Nurse Practitioner. DATE OF SERVICE: 07/22/17 SUBJECTIVE: This 82 year old WHITE/ M was hospitalized 07/20/17. The patient is alert and oriented, is afebrile, lying in bed. He is eating well. REVIEW OF SYSTEMS: CONSTITUTIONAL: No night sweats. No fatigue, malaise, lethargy. No fever or chills. HEENT: Eyes: No visual changes. No eye pain. No eye discharge. ENT: No runny nose. No epistaxis. No sinus pain. No odynophagia. No congestion. RESPIRATORY: No cough, no congestion. No hemoptysis. No shortness of breath. CARDIOVASCULAR: No angina symptoms. No CHF symptoms. No atypical chest pain for CAD. No palpitations. No orthopnea.. GASTROINTESTINAL: No abdominal pain. No nausea or vomiting. No diarrhea or constipation. No hematemesis. No hematochezia. GENITOURINARY: No urgency. No frequency. No dysuria. No hematuria. No obstructive symptoms. No discharge. No pain. No significant abnormal bleeding. MUSCULOSKELETAL: No musculoskeletal pain; no joint swelling. NEUROLOGICAL: Awake, alert, oriented to time, place and person. No headache. No neck pain. No syncope. No seizures. No dizziness. PSYCHIATRIC: Not anxious. No depression. No suicidal thoughts. No homicidal thoughts. SKIN: No rash. Cellulitis bilateral lower extremities. ENDOCRINE: No unexplained weight loss. No weight gain. HEMATOLOGIC/LYMPHATIC: No anemia. No purpura. No petechiae. No prolonged or excessive bleeding. No palpable lymph nodes. PHYSICAL EXAMINATION: GENERAL: The patient is awake, alert and oriented, lying in bed in no distress. VITAL SIGNS: Temperature 98.5 F, Pulse 55, Respiratory Rate 16, BP 115/59, Pulse Ox 93% HEENT: Head normocephalic, atraumatic. Eyes: Extraocular muscles are intact. Pupils are equal, round and reactive to light and accommodation. Ears: No lesions. Nose appeared normal. Throat: No exudate or erythema. NECK: Supple. No JVD, no carotid bruit. No lymphadenopathy or thyromegaly. LUNGS: Diminished bilaterally. Clear to auscultation. Percussion note normal. Chest symmetrical. HEART: S1, S2, no S3. Heart rate is irregular consistent with atrial fib. No cyanosis or clubbing. No ascites. Pulses: Dorsalis pedis and posterior tibial pulses +1 to +2 both sides. ABDOMEN: Soft. Non-tender. Obese. Bowel sounds active. No CVA tenderness. No mass felt. EXTREMITIES: +1 pitting edema bilateral lower extremities with erythema. Blistering has improved. Full range of motion of all extremities, equal. NEUROLOGIC: No focal deficit. Cranial nerves II through XII are grossly intact. No headache, no double vision or headache. SKIN: Warm, dry and intact. Turgor-normal. Erythema bilateral lower extremities. Blistering has improved. LYMPHATIC: No palpable lymph nodes/no lymphedema. MUSCULOSKELETAL: Normal joints with no swelling. Muscle tone is normal. LAB REVIEW: 07/22/17 03:50 07/22/17 03:50 07/22/17 03:50: Sodium 141, Potassium 5.1, Chloride 107, Carbon Dioxide 27, Anion Gap 12.1, BUN 38 H, Creatinine 1.25 H, Estimated GFR (MDRD) 55.00, BUN/ Creatinine Ratio 30.40, Glucose 148 H D, Calcium 8.8, Total Bilirubin 1.05, AST 14 L, ALT 12, Alkaline Phosphatase 127 H, Total Protein 5.6 L, Albumin 2.9 L, Globulin 2.7, Albumin/Globulin Ratio 1.07 07/22/17 03:50: WBC 9.86, RBC 4.18 L, Hgb 12.6 L, Hct 38.4 L, MCV 91.9, MCH 30.1 , MCHC 32.8, RDW Coeff of Fabby 20.3 H, Plt Count 190, Immature Gran % (Auto) 0.6 , Neut % (Auto) 55.8, Lymph % (Auto) 17.5, Rich % (Auto) 14.3 H, Eos % (Auto) 10.4 H, Baso % (Auto) 1.4, Immature Gran # (Auto) 0.1, Neut # 5.5, Lymph # 1.7, Rich # 1.4, Eos # 1.0 H, Baso # 0.1 07/21/17 04:34: Hemoglobin A1c 7.5 H ASSESSMENT: 1. Hypoglycemia 2. Peripheral arterial disease 3. Partial amputation of left foot 4. Ulcers on left leg and one ulcer on the right, more or less superficial, Stage 2 and present on admission. The legs look much better today. 5. Ascites with likely liver cirrhosis. No history of alcohol abuse. Likely cause is CHF and/or hepatic steatosis 6. Chronic lung disease 7. Dyslipidemia 8. Atrial fibrillation 9. Noncompliance with BMI 34 10. Hypertension PLAN: 1. Daily weights 2. Continue iv antibiotics 3. 24 hour urine in process 4. Wound care referral made 5. Keep legs elevated Plan and coordination of the patient's care discussed in the presence of Express Clerk and nurse. CONDITION: Stable SCRIBED BY: FATOUMATA RECINOS Assistant Scientist scribed while in presence of service performed by Dr. Mullen/Crystal Gayle APRN on 07/22/17 ([id number])
[2017-07-22] MEDS: CRESTOR PO SCH (20:22)
[2017-07-22] MEDS: CARDURA PO SCH (20:22)
[2017-07-23] MEDS: HUMULIN R SUBCUT PRN ×4 (05:53→20:29)
[2017-07-23] MEDS: SILVADENE CREAM TP SCH ×2 (05:53→17:19)
[2017-07-23] MEDS: LOTRISONE 15 GM TP SCH ×2 (05:53→17:19)
[2017-07-23] MEDS: LASIX IVP SCH (05:54)
[2017-07-23] MEDS: TORADOL IVP SCH ×3 (05:54→20:29)
[2017-07-23] MEDS ORDERED: LASIX IVP STA (08:04)
[2017-07-23] MEDS: ELIQUIS PO SCH ×2 (08:13→20:30)
[2017-07-23] MEDS: COZAAR PO SCH (08:13)
[2017-07-23] MEDS: ALDACTONE PO SCH ×2 (08:13→20:30)
[2017-07-23] MEDS: ASPIRIN EC PO SCH (08:13)
[2017-07-23] MEDS: ROCEPHIN 1 GM in SODIUM CHLORIDE 50 ML IV SCH (08:14)
[2017-07-23 08:55] LABS: BASOPHILS # (AUTO) 0.1 K/uL (0-0.2); BASOPHILS % (AUTO) 1.1 % (0.0-3.0); EOSINOPHILS # (AUTO) 0.9 K/ul (0.0-0.7); EOSINOPHILS % (AUTO) 9.1 % (0.0-7.0); HEMOGLOBIN 13.3 g/dl (14.0-18.0); IMMATURE GRANULOCYTE % (AUTO) 0.6 % (0.0-5.0); LYMPHOCYTES # (AUTO) 1.8 K/uL (0.60-3.4); LYMPHOCYTES % (AUTO) 18.2 (10.0-50.0); MEAN CORPUSCULAR HEMOGLOBIN 30.2 pg (27.0-31.0); MEAN CORPUSCULAR HGB CONC 33.3 (31.8-35.4); MEAN CORPUSCULAR VOLUME 90.9 fl (80.0-94.0); MONOCYTES # (AUTO) 1.1 K/uL (0.4-2.0); MONOCYTES % (AUTO) 11.1 (0-10); NEUTROPHILS # (AUTO) 5.8 K/ul (2.0-6.9); NEUTROPHILS % (AUTO) 59.9; PLATELET COUNT 200 10^3/uL (140-440); WHITE BLOOD COUNT 9.62 K/ul (4.2-10.2)
[2017-07-23 09:13] LABS: ALBUMIN 3.1 g/dL (3.4-5.0); ALBUMIN/GLOBULIN RATIO 1.03; ANION GAP 11.5; BILIRUBIN,TOTAL 1.02 mg/dL (0.00-1.20); CALCIUM 8.8 mg/dL (8.2-10.2); CREATININE 1.25 mg/dL (0.60-1.10); POTASSIUM 5.5 mmol/L (3.5-5.1); TOTAL PROTEIN 6.1 g/dL (5.8-8.1)
--- NOTE | 2017-07-23 09:17 | PCM.PROG ---
Attending Provider: ATTENDING PROVIDER: [facility] This patient is seen with Crystal Gayle, Nurse Practitioner. DATE OF SERVICE: 07/23/17 SUBJECTIVE: This 82 year old WHITE/ M was hospitalized 07/20/17. The patient is sitting in bed, alert. Leg swelling slightly worse. REVIEW OF SYSTEMS: CONSTITUTIONAL: No night sweats. No fatigue, malaise, lethargy. No fever or chills. HEENT: Eyes: No visual changes. No eye pain. No eye discharge. ENT: No runny nose. No epistaxis. No sinus pain. No odynophagia. No congestion. RESPIRATORY: No cough, no congestion. No hemoptysis. No shortness of breath. CARDIOVASCULAR: No angina symptoms. No CHF symptoms. No atypical chest pain for CAD. No palpitations. No orthopnea.. GASTROINTESTINAL: No abdominal pain. No nausea or vomiting. No diarrhea or constipation. No hematemesis. No hematochezia. GENITOURINARY: No urgency. No frequency. No dysuria. No hematuria. No obstructive symptoms. No discharge. No pain. No significant abnormal bleeding. MUSCULOSKELETAL: No musculoskeletal pain; no joint swelling. NEUROLOGICAL: Awake, alert, oriented to time, place and person. No headache. No neck pain. No syncope. No seizures. No dizziness. PSYCHIATRIC: Not anxious. No depression. No suicidal thoughts. No homicidal thoughts. SKIN: No rash. Leg edema and redness. ENDOCRINE: No unexplained weight loss. No weight gain. HEMATOLOGIC/LYMPHATIC: No anemia. No purpura. No petechiae. No prolonged or excessive bleeding. No palpable lymph nodes. PHYSICAL EXAMINATION: GENERAL: The patient is awake, alert and oriented, lying in bed in no distress. VITAL SIGNS: Temperature 97.5 F, Pulse 62, Respiratory Rate 20, BP 127/68, Pulse Ox 95% HEENT: Head normocephalic, atraumatic. Eyes: Extraocular muscles are intact. Pupils are equal, round and reactive to light and accommodation. Ears: No lesions. Nose appeared normal. Throat: No exudate or erythema. NECK: Supple. No JVD, no carotid bruit. No lymphadenopathy or thyromegaly. LUNGS: Diminished breath sounds. Clear to auscultation. Percussion note normal. Chest symmetrical. HEART: Irregular heart rate. S1, S2, no S3. No murmurs. No cyanosis or clubbing. Mild ascites. Pulses: Dorsalis pedis and posterior tibial pulses +1 to +2 both sides. ABDOMEN: Soft. Non-tender. Bowel sounds active. No CVA tenderness. No mass felt. EXTREMITIES: +2 pitting edema bilateral lower extremities with improving erythema. Partial amputation left foot. Full range of motion of all extremities , equal. NEUROLOGIC: No focal deficit. Cranial nerves II through XII are grossly intact. No headache, no double vision or headache. SKIN: Not dry. Intact. Turgor-normal. LYMPHATIC: No palpable lymph nodes/no lymphedema. MUSCULOSKELETAL: Normal joints with no swelling. Muscle tone is normal. LAB REVIEW: 07/22/17 03:50 07/22/17 03:50 ASSESSMENT: 1. Hypoglycemia 2. Peripheral arterial disease 3. Partial amputation of left foot 4. Ulcers on left leg and one ulcer on the right, more or less superficial, Stage 2 and present on admission. The legs look much better today. 5. Ascites with likely liver cirrhosis. No history of alcohol abuse. Likely cause is CHF and/or hepatic steatosis 6. Chronic lung disease 7. Dyslipidemia 8. Atrial fibrillation 9. Noncompliance with BMI 34 10. Hypertension 11. Wound culture positive for Enterobacter Cloacae PLAN: 1. Lasix 20 mg IV, extra dose 2. CBC/CMP 3. D/C Vancomycin Plan and coordination of the patient's care discussed in the presence of Stringed Instrument Tuner and nurse. CONDITION: Stable SCRIBED BY: Paulina CHAPMAN scribed while in presence of service performed by Dr. Mullen/Crystal Gayle APRN on 07/23/17 ([id number])
[2017-07-23 13:12] LABS: URINE TOTAL PROTEIN 24 HR 5.9 mg/dL (Not Estab.)
[2017-07-23] MEDS ORDERED: KAYEXALATE SUSP PO STA (13:25)
--- NOTE | 2017-07-23 14:09 | HP ---
DATE OF SERVICE: 07/20/17 REASON FOR HOSPITALIZATION: Findings happened through routine physical in the ER like leg edema with ulcers , pleural effusion, ascites. HISTORY OF PRESENT ILLNESS: This 82-year-old white male was trying to go to the [employer] to eat, confused , was found by the [employer] and was brought to the emergency room. The patient had hypoglycemia. The patient is oriented to time, place and person. He is intelligent. He is noncompliant of his medications, doesn't know the name of the medicines. He is refusing to go to [facility] - under no circumstances he would go otherwise he would sign out. The patient has been recently hospitalized at [facility] with transdorsal amputation of the lower foot on the left in December 2016. Besides hypoglycemia, he says he is having swelling of the legs. PAST MEDICAL/SURGICAL HISTORY: Transdorsal amputation of the left foot, December 2016 Diabetes mellitus since Hypertension Dyslipidemia Anemia BPH Leg edema Leg ulcers REVIEW OF SYSTEMS: CONSTITUTIONAL: No night sweats. No fatigue, malaise, lethargy. No fever or chills. HEENT: Eyes: No visual changes. No eye pain. No eye discharge. ENT: No runny nose. No epistaxis. No sinus pain. No sore throat. No odynophagia. No ear pain. No congestion. RESPIRATORY: No cough, no congestion. No hemoptysis. No shortness of breath. CARDIOVASCULAR: No angina symptoms. No CHF symptoms. No atypical chest pain for CAD. No palpitations. No orthopnea. GASTROINTESTINAL: No abdominal pain. No nausea or vomiting. No diarrhea or constipation. No hematemesis. No hematochezia. GENITOURINARY: No urgency. No frequency. No dysuria. No hematuria. No obstructive symptoms. No discharge. No pain. No significant abnormal bleeding. MUSCULOSKELETAL: No musculoskeletal pain. No joint swelling. No arthritis. NEUROLOGICAL: No headache. No neck pain. No syncope. No seizures. No dizziness. PSYCHIATRIC: Not anxious. No depression. No suicidal thoughts. No homicidal thoughts. SKIN: No rash. ENDOCRINE: No unexplained weight loss. No weight gain. HEMATOLOGIC/LYMPHATIC: No anemia. No purpura. No petechiae. No prolonged or excessive bleeding. No palpable lymph nodes. PERSONAL/FAMILY/SOCIAL HISTORY: The patient is , lives alone. He has a woman friend (a neighbor) and she helps him out. Nonsmoker. No alcohol abuse. He was in the [employer] from 6 to 1961 in [place], never in combat. The patient states he has several children, some of them live in [facility]. MEDICATIONS: Amlodipine 10 mg p.o. daily Amitriptyline 25 mg p.o. at nighttime Tylenol 1000 mg t.i.d. Aspirin 81 mg p.o. daily Cardura 4 mg p.o. at bedtime Ferrous Sulfate 325 mg twice a day Finasteride 5 mg p.o. daily Lantus 56 units at bedtime Crestor 5 mg at bedtime Demodex 20 mg p.o. daily It is to be noted that the patient says he has been put on some new blood thinner but does not know the name. ALLERGIES: LISINOPRIL PHYSICAL EXAMINATION: GENERAL: The patient is oriented to time, place and person. VITAL SIGNS: Temperature 97, pulse 93, respiratory rate 20, BP 148/106, pulse ox 94%. HEENT: Head normocephalic, atraumatic. Eyes: Extraocular muscles are intact. Pupils are equal, round and reactive to light and accommodation. Ears: No lesions. Nose appeared normal. Throat: No exudate or erythema. NECK: Supple. No JVD, no carotid bruit. No lymphadenopathy or thyromegaly. LUNGS: Decreased breath sounds but clear to auscultation. Percussion note normal. Chest symmetrical. HEART: S1, S2, no S3. Irregular. No murmurs. No cyanosis or clubbing. Abdominal ascites +1-+2. Pulses: I don't feel any pulses in the lower extremities. Radial pulse +1 bilaterally. ABDOMEN: Soft. Nontender. Bowel sounds active. No CVA tenderness. No organomegaly. EXTREMITIES: Left foot has transdorsal amputation. Leg edema +1 to +2 non pitting and pitting with red pigmentation likely hemosideran. Two ulcers noted like square, oblong measuring 1.5 cm superficial on the back of the posterior aspect of the left lower leg, one ulcer on medial aspect which is 2" oblong in the maximum diameter on the right leg in the middle part medially. According to the patient, they were blisters with oozing of the fluid, blisters were broken and then formed ulcers. Full range of motion of all extremities, equal. NEUROLOGIC: No focal deficit. Cranial nerves II through XII are grossly intact. No headache, no double vision or headache. SKIN: Warm and dry. Intact. Turgor - normal. LYMPHATIC: No palpable lymph nodes/no lymphedema. MUSCULOSKELETAL: Normal joints with no swelling. Muscle tone is normal. LABS: Hemoglobin 14, hematocrit 42, WBC 10,800, normal differential. Creatinine 1, BUN 28, potassium 4.1. Liver profile normal. Troponin and albumin normal. INR 1.36. CT of the chest showed bilateral pleural effusion, atelectasis or pneumonia, lung nodule 0.41 cm size on left lung. Pulmonary vascular congestion noted upper limit of normal heart size, nonspecific mediastinal lymph nodes. CT of the abdomen and pelvis showed large right-sided moderately sized left-sided pleural effusion, abdominal ascites, nonspecific prominent abdominal and periportal lymph nodes, generalized anasarca noted, degenerative disk disease noted. Ultrasound of the lower extremities normal. ABG pH 7.37, p02 64, pc02 39 , percent saturation 92% on room air. Procalcitonin less than 0.05. The patient's EKG shows atrial fibrillation with rate of nearly 90 to 100/min. According to the patient, he has been put on some kind of a new blood thinner. In any case, will start patient on Eliquis 5 mg p.o. b.i.d. The patient was educated about Eliquis and explained about atrial fibrillation with multiple risk factors he has with CHADS2 VASC score being more than 5. The patient was explained about GI bleed and not to take any nonsteroidal antiinflammatory. Also explained about the complication with intracranial bleed and he has agreed to take the blood thinner Eliquis. ASSESSMENT: 1. HYPOGLYCEMIA LIKELY BECAUSE OF PATIENT'S INABILITY TO EAT ON A REGULAR BASIS BEING ON INSULIN, LANTUS 56 UNITS. 2. BILATERAL LEG EDEMA WITH POSSIBILITY OF CELLULITIS WHICH IS QUESTIONABLE WITH ULCERS WITH HISTORY OF BLISTERS LIKELY FROM PEDAL EDEMA. 3. PERIPHERAL ARTERIAL DISEASE. 4. ASCITES AND GENERALIZED ANASARCA COULD BE FROM DIFFERENT FACTORS LIKE CONGESTIVE HEART FAILURE WITH CARDIAC CIRRHOSIS AND/OR PROTEINURIA WITH NEPHROTIC SYNDROME OR COPD WITH RIGHT-SIDED FAILURE ALONG WITH LEFT-SIDED FAILURE WITH CHF. 5. HYPERTENSION. 6. DYSLIPIDEMIA 7. BPH 8. NEUROPATHY PLAN: 1. IV Lasix 40 mg now. 2. Aldactone 25 mg p.o. twice a day. 3. Elevate the legs. 4. Agreed with Rocephin-Vancomycin combination. 5. Cultures from the leg ulcers. The patient's leg ulcers are superficial. 6. Ultrasound of the liver. 7. 2D 'M' Mode to evaluate LV function. 8. BNP. 9. T4 and TSH. 10. Daily CBC, CMP 11. Discontinue Norvasc because that could contribute toward leg edema. 12. Cozaar 100 mg p.o. q.a.m. 13. IV Vasotec 0.125 for systolic blood pressure 150 q.8hourly. 14. Wound care per protocol. 15. Wound care referral to W[facility] Care Unit at [facility]. 16. Accu-Cheks with coverage. 17. Education carried out about diabetes and its complications including peripheral arterial disease ulceration. 18. The patient has no understanding of what his A1C is. The patient is not able to name his medications. The patient doesn't know who did the surgery on his leg at [facility]. He has had practially no followups and he gets all his medications refilled by [facility]. PROGNOSIS: Poor. The patient states he has several children, some of them live in [facility]. TIME SPENT: More than 70 minutes. SHAHEEN
[2017-07-23] MEDS: APRESOLINE PO SCH ×2 (14:10→20:30)
[2017-07-23] MEDS: NORVASC PO SCH (20:30)
[2017-07-23] MEDS: CARDURA PO SCH (20:30)
[2017-07-23] MEDS: CRESTOR PO SCH (20:31)
[2017-07-23] MEDS: ATIVAN PO PRN (20:31)
[2017-07-23] MEDS: DESYREL PO SCH (20:31)
[2017-07-24 05:09] LABS: BASOPHILS # (AUTO) 0.1 K/uL (0-0.2); BASOPHILS % (AUTO) 1.2 % (0.0-3.0); EOSINOPHILS # (AUTO) 0.8 K/ul (0.0-0.7); EOSINOPHILS % (AUTO) 9.2 % (0.0-7.0); HEMATOCRIT 38.5 % (42.0-52.0); HEMOGLOBIN 12.6 g/dl (14.0-18.0); IMMATURE GRANULOCYTE % (AUTO) 0.6 % (0.0-5.0); LYMPHOCYTES # (AUTO) 1.6 K/uL (0.60-3.4); LYMPHOCYTES % (AUTO) 17.4 (10.0-50.0); MEAN CORPUSCULAR HEMOGLOBIN 29.8 pg (27.0-31.0); MEAN CORPUSCULAR HGB CONC 32.7 (31.8-35.4); MONOCYTES # (AUTO) 1.2 K/uL (0.4-2.0); MONOCYTES % (AUTO) 13.5 (0-10); NEUTROPHILS # (AUTO) 5.2 K/ul (2.0-6.9); NEUTROPHILS % (AUTO) 58.1; PLATELET COUNT 185 10^3/uL (140-440); RED BLOOD COUNT 4.23 10^6/ul (4.70-6.10); WHITE BLOOD COUNT 8.99 K/ul (4.2-10.2)
[2017-07-24 05:36] LABS: ALBUMIN 2.9 g/dL (3.4-5.0); ANION GAP 12.2; BILIRUBIN,TOTAL 0.78 mg/dL (0.00-1.20); BUN/CREATININE RATIO 30.07; CALCIUM 8.7 mg/dL (8.2-10.2); CREATININE 1.33 mg/dL (0.60-1.10); POTASSIUM 5.2 mmol/L (3.5-5.1); TOTAL PROTEIN 5.8 g/dL (5.8-8.1)
[2017-07-24] MEDS: TORADOL IVP SCH ×3 (05:46→20:05)
[2017-07-24] MEDS: HUMULIN R SUBCUT PRN ×4 (05:46→20:05)
[2017-07-24] MEDS: LASIX IVP SCH (05:46)
[2017-07-24] MEDS: SILVADENE CREAM TP SCH ×3 (05:47→17:34)
[2017-07-24] MEDS: LOTRISONE 15 GM TP SCH ×3 (05:48→17:33)
[2017-07-24] MEDS: APRESOLINE PO SCH ×2 (08:33→20:04)
[2017-07-24] MEDS: ALDACTONE PO SCH ×2 (08:33→20:04)
[2017-07-24] MEDS: ROCEPHIN 1 GM in SODIUM CHLORIDE 50 ML IV SCH (08:33)
[2017-07-24] MEDS: ASPIRIN EC PO SCH (08:33)
[2017-07-24] MEDS: ELIQUIS PO SCH ×2 (08:33→20:03)
[2017-07-24] MEDS: CARDURA PO SCH (20:03)
[2017-07-24] MEDS: NORVASC PO SCH (20:03)
[2017-07-24] MEDS: CRESTOR PO SCH (20:03)
[2017-07-24] MEDS: ATIVAN PO PRN (20:04)
[2017-07-24] MEDS: DESYREL PO SCH (20:06)
[2017-07-25] MEDS: TORADOL IVP SCH ×3 (04:07→20:17)
[2017-07-25 05:26] LABS: BASOPHILS # (AUTO) 0.1 K/uL (0-0.2); BASOPHILS % (AUTO) 1.5 % (0.0-3.0); EOSINOPHILS # (AUTO) 0.7 K/ul (0.0-0.7); EOSINOPHILS % (AUTO) 7.9 % (0.0-7.0); HEMATOCRIT 38.5 % (42.0-52.0); HEMOGLOBIN 12.7 g/dl (14.0-18.0); IMMATURE GRANULOCYTE % (AUTO) 0.7 % (0.0-5.0); LYMPHOCYTES % (AUTO) 23.2 (10.0-50.0); MEAN CORPUSCULAR HEMOGLOBIN 30.2 pg (27.0-31.0); MEAN CORPUSCULAR VOLUME 91.4 fl (80.0-94.0); MONOCYTES # (AUTO) 1.1 K/uL (0.4-2.0); MONOCYTES % (AUTO) 12.8 (0-10); NEUTROPHILS # (AUTO) 4.8 K/ul (2.0-6.9); NEUTROPHILS % (AUTO) 53.9; PLATELET COUNT 177 10^3/uL (140-440); RED BLOOD COUNT 4.21 10^6/ul (4.70-6.10); WHITE BLOOD COUNT 8.81 K/ul (4.2-10.2)
[2017-07-25 05:47] LABS: ALBUMIN/GLOBULIN RATIO 0.97; ANION GAP 12.2; BILIRUBIN,TOTAL 0.89 mg/dL (0.00-1.20); BUN/CREATININE RATIO 33.06; CALCIUM 8.8 mg/dL (8.2-10.2); CREATININE 1.24 mg/dL (0.60-1.10); POTASSIUM 5.2 mmol/L (3.5-5.1); TOTAL PROTEIN 6.1 g/dL (5.8-8.1)
[2017-07-25] MEDS: LASIX IVP SCH (05:48)
[2017-07-25] MEDS: LOTRISONE 15 GM TP SCH ×2 (05:49→18:01)
[2017-07-25] MEDS: SILVADENE CREAM TP SCH ×2 (05:49→18:01)
[2017-07-25] MEDS: HUMULIN R SUBCUT PRN ×4 (06:02→20:17)
[2017-07-25] MEDS: ASPIRIN EC PO SCH (08:19)
[2017-07-25] MEDS: ELIQUIS PO SCH ×2 (08:19→20:17)
[2017-07-25] MEDS: APRESOLINE PO SCH ×2 (08:20→20:16)
[2017-07-25] MEDS: ALDACTONE PO SCH ×2 (08:20→20:16)
[2017-07-25] MEDS: ROCEPHIN 1 GM in SODIUM CHLORIDE 50 ML IV SCH (08:20)
[2017-07-25] MEDS ORDERED: KAYEXALATE SUSP PO STA (08:40)
[2017-07-25] MEDS: CARDURA PO SCH (20:15)
[2017-07-25] MEDS: NORVASC PO SCH (20:16)
[2017-07-25] MEDS: CRESTOR PO SCH (20:16)
[2017-07-25] MEDS: DESYREL PO SCH (20:16)
[2017-07-25] MEDS: ATIVAN PO PRN (20:18)
[2017-07-26] MEDS: TORADOL IVP SCH (04:44)
[2017-07-26] MEDS: LOTRISONE 15 GM TP SCH (05:43)
[2017-07-26] MEDS: LASIX IVP SCH (05:43)
[2017-07-26] MEDS: SILVADENE CREAM TP SCH (05:43)
[2017-07-26] MEDS: HUMULIN R SUBCUT PRN (05:54)
[2017-07-26] MEDS: ELIQUIS PO SCH (08:36)
[2017-07-26] MEDS: ASPIRIN EC PO SCH (08:36)
[2017-07-26] MEDS: ALDACTONE PO SCH (08:36)
[2017-07-26] MEDS: ROCEPHIN 1 GM in SODIUM CHLORIDE 50 ML IV SCH (08:36)
[2017-07-26] MEDS: APRESOLINE PO SCH (08:36)
--- NOTE | 2017-07-26 09:06 | PN ---
DATE OF SERVICE: 07/23/17 SUBJECTIVE: The patient's female friend is with him at present time. Her name is Elodia Aramis. The patient has agreed for me to talk to Elodia for any of his medical problem and discuss with him the patient's medications are taken care of by Carmelina. Again the education was carried about liver cirrhosis, peripheral arterial disease, ascites, cellulitis, leg edema and complication about diabetes. Total time spent an hours. The patient's other problem is hyperkalemia , Potassium is 5.5. PLAN: 1. The patient will be given Kayexalate 25grams. 2. Cozaar will be discontinued. 3. The patient is going to be on Norvasc and Hydralazine. 4. We will do the CBC and CMP daily. CONDITION: Stable. The patient's admission weight was incorrect. Plan and coordination of the patient's care discussed in the presence of nurse. SHAHEEN
[2017-07-26 09:28] LABS: BASOPHILS # (AUTO) 0.1 K/uL (0-0.2); BASOPHILS % (AUTO) 1.4 % (0.0-3.0); EOSINOPHILS # (AUTO) 0.5 K/ul (0.0-0.7); EOSINOPHILS % (AUTO) 6.2 % (0.0-7.0); HEMATOCRIT 38.5 % (42.0-52.0); HEMOGLOBIN 12.7 g/dl (14.0-18.0); IMMATURE GRANULOCYTE % (AUTO) 0.5 % (0.0-5.0); LYMPHOCYTES # (AUTO) 1.7 K/uL (0.60-3.4); LYMPHOCYTES % (AUTO) 20.2 (10.0-50.0); MEAN CORPUSCULAR HEMOGLOBIN 30.5 pg (27.0-31.0); MEAN CORPUSCULAR VOLUME 92.3 fl (80.0-94.0); MONOCYTES % (AUTO) 12.1 (0-10); NEUTROPHILS % (AUTO) 59.6; PLATELET COUNT 175 10^3/uL (140-440); RED BLOOD COUNT 4.17 10^6/ul (4.70-6.10); WHITE BLOOD COUNT 8.45 K/ul (4.2-10.2)
--- NOTE | 2017-07-26 09:39 | PCM.PROG ---
Attending Provider: ATTENDING PROVIDER: [facility] This patient is seen with Crystal Gayle, Nurse Practitioner. DATE OF SERVICE: 07/26/17 SUBJECTIVE: This 82 year old WHITE/ M was hospitalized 07/20/17. The patient is sitting on the side of the bed, alert. He has been up and about. He states he wants to go home today. REVIEW OF SYSTEMS: CONSTITUTIONAL: No night sweats. No fatigue, malaise, lethargy. No fever or chills. HEENT: Eyes: No visual changes. No eye pain. No eye discharge. ENT: No runny nose. No epistaxis. No sinus pain. No odynophagia. No congestion. RESPIRATORY: No cough, no congestion. No hemoptysis. No shortness of breath. CARDIOVASCULAR: No angina symptoms. No CHF symptoms. No atypical chest pain for CAD. No palpitations. No orthopnea.. GASTROINTESTINAL: No abdominal pain. No nausea or vomiting. No diarrhea or constipation. No hematemesis. No hematochezia. GENITOURINARY: No urgency. No frequency. No dysuria. No hematuria. No obstructive symptoms. No discharge. No pain. No significant abnormal bleeding. MUSCULOSKELETAL: No musculoskeletal pain; no joint swelling. NEUROLOGICAL: Awake, alert, oriented to time, place and person. No headache. No neck pain. No syncope. No seizures. No dizziness. PSYCHIATRIC: Not anxious. No depression. No suicidal thoughts. No homicidal thoughts. SKIN: No rash. No lesions. No wounds. Bilateral lower extremity redness and improving edema. ENDOCRINE: No unexplained weight loss. No weight gain. HEMATOLOGIC/LYMPHATIC: No anemia. No purpura. No petechiae. No prolonged or excessive bleeding. No palpable lymph nodes. PHYSICAL EXAMINATION: GENERAL: The patient is awake, alert and oriented, lying in bed in no distress. VITAL SIGNS: Temperature 98.4 F, Pulse 60, Respiratory Rate 21, BP 138/66, Pulse Ox 93% HEENT: Head normocephalic, atraumatic. Eyes: Extraocular muscles are intact. Pupils are equal, round and reactive to light and accommodation. Ears: No lesions. Nose appeared normal. Throat: No exudate or erythema. NECK: Supple. No JVD, no carotid bruit. No lymphadenopathy or thyromegaly. LUNGS: Diminished breath sounds. Clear to auscultation. Percussion note normal. Chest symmetrical. HEART: S1, S2, no S3. Irregular heart rate. No ascites. Pulses: Dorsalis pedis and posterior tibial pulses +1 to +2 both sides. ABDOMEN: Soft. Non-tender. Bowel sounds active. No CVA tenderness. No mass felt. EXTREMITIES: Chronic erythema due to chronic leg edema and PVD. Turgor-normal. Trace edema left lower extremity. No edema right lower extremity. Full range of motion of all extremities, equal. NEUROLOGIC: No focal deficit. Cranial nerves II through XII are grossly intact. No headache, no double vision or headache. SKIN: Ulcerations, scabbed, no drainage. No signs or symptoms of infection. LYMPHATIC: No palpable lymph nodes/no lymphedema. MUSCULOSKELETAL: Normal joints with no swelling. Muscle tone is normal. LAB REVIEW: 07/25/17 05:22 07/25/17 05:22 ASSESSMENT: 1. Hyperkalemia 2. Peripheral arterial disease 3. Partial amputation of left foot 4. Ulcers on left leg and one ulcer on the right, more or less superficial, Stage 2 and present on admission. The legs look much better today. 5. Ascites with likely liver cirrhosis. No history of alcohol abuse. Likely cause is CHF and/or hepatic steatosis 6. Chronic lung disease 7. Dyslipidemia 8. Atrial fibrillation 9. Noncompliance with BMI 34 10. Hypertension 11. Wound culture positive for Enterobacter Cloacae PLAN: 1. Possible discharge today. 2. If discharged, Keflex 500 mg t.i.d. for 7 days. 3. Bactroban ointment b.i.d. for 2 days. 4. Continue medications as given here. 5. Appointment with Wound Care - Wound Care is to set up. 6. Discharge back to PCP which is [facility]. Plan and coordination of the patient's care discussed in the presence of Rail Splitter and nurse. CONDITION: Stable SCRIBED BY: Paulina CHAPMAN scribed while in presence of service performed by Dr. Mullen/Crystal Gayle APRN on 07/26/17 (1120)
[2017-07-26 09:52] VITALS: BP 138/64; TEMP 97.9
[2017-07-26 09:52] LABS: ALBUMIN 3.1 g/dL (3.4-5.0); ALBUMIN/GLOBULIN RATIO 1.03; ANION GAP 12.1; BILIRUBIN,TOTAL 0.95 mg/dL (0.00-1.20); BUN/CREATININE RATIO 28.57; CREATININE 1.33 mg/dL (0.60-1.10); POTASSIUM 5.1 mmol/L (3.5-5.1); TOTAL PROTEIN 6.1 g/dL (5.8-8.1)
--- NOTE | 2017-07-26 10:18 | CM.DICTOOL ---
ADMISSION: 07/20/17 15:01 DISCHARGE: 07/26/17 FINAL DIAGNOSIS Cellulitis (Acute) Hypoglycemia (Acute) HISTORY OF: DM TYPE 1 DYSLIPIDEMIA HYPERTENSION CHF A-FIB ARTHRITIS PAD SURGICAL HISTORY: PARTIAL AMPUTATION OF LEFT FOOT LAST VITALS Temp Pulse Resp BP Pulse Ox 98.4 F 60 21 138/66 93 L 07/26/17 05:33 07/26/17 05:33 07/26/17 05:33 07/26/17 05:33 07/26/17 05:33 ACTIVE MEDICATIONS Amlodipine Besylate (Norvasc) 5 mg PO BEDTIME [facility] Last Admin: 07/25/17 20:16 Dose: 5 mg Apixaban (Eliquis) 5 mg PO BID [facility] Last Admin: 07/26/17 08:36 Dose: 5 mg Aspirin (Aspirin Ec) 81 mg PO DAILYWM [facility] Last Admin: 07/26/17 08:36 Dose: 81 mg Clotrimazole (Lotrisone 15 Gm) 1 applic TP 0600,1800 [facility] Last Admin: 07/26/17 05:43 Dose: 1 applic Doxazosin Mesylate (Cardura) 4 mg PO BEDTIME [facility] Last Admin: 07/25/17 20:15 Dose: 4 mg Hydralazine HCl (Apresoline) 25 mg PO Q12HR [facility] Last Admin: 07/26/17 08:36 Dose: 25 mg Rosuvastatin Calcium (Crestor) 5 mg PO BEDTIME [facility] Last Admin: 07/25/17 20:16 Dose: 5 mg Spironolactone (Aldactone) 25 mg PO BID [facility] Last Admin: 07/26/17 08:36 Dose: 25 mg Trazodone HCl (Desyrel) 50 mg PO BEDTIME [facility] Last Admin: 07/25/17 20:16 Dose: 50 mg LASIX 40MG PO DAILY LAST AMDIN: 07/26/17 40MG IV AT 0900 ALLERGIES lisinopril Adverse Reaction (Verified 07/20/17 12:19) NEW PRESCRIPTIONS: NEW MEDICATIONS: 1. KEFLEX 500MG TAKE 1 BY MOUTH 3 TIMES A DAY FOR 7 DAYS UNTIL ALL GONE. 2. BACTROBAN APPLY TO WOUNDS 2 TIMES A DAY FOR 14 DAYS. 3. APRESOLINE 25MG TAKE 1 TABLET BY MOUTH 2 TIMES A DAY 4. TRAZODONE 50MG TAKE 1 TABLET AT BEDTIME 5. ELIQUIS 5MG TAKE 1 TABLET 2 TIMES A DAY 6. LASIX 40MG PO DAILY SMOKING: N/A DISEASE SPECIFIC EDUCATION: MEDICATIONS WOUND CARE KEEPING LEGS ELEVATED FOLLOW UP APPOINTMENTS LAB REVIEW: 07/25/17 05:22 07/25/17 05:22 PLAN: DISCHARGE HOME. CONTINUE HOME MEDICATIONS PER NURSING SHEET WITH FOLLOWING CHANGES: 1. DECREASE NORVASC TO 5MG DAILY - TAKE 1/2 OF YOUR TABLET 2. INCREASE ALDACTONE TO 25MG 2 TIMES A DAY - TAKE 1 IN AM AND 1 AT BEDTIME OF YOUR TABLETS. 3. DO NOT TAKE XARELTO 4. DO NOT TAKE AMOXICILLIN/POTASSIUM CLAV NEW MEDICATIONS: 1. KEFLEX 500MG TAKE 1 BY MOUTH 3 TIMES A DAY FOR 7 DAYS UNTIL ALL GONE. 2. BACTROBAN APPLY TO WOUNDS 2 TIMES A DAY FOR 14 DAYS. 3. APRESOLINE 25MG TAKE 1 TABLET BY MOUTH 2 TIMES A DAY 4. TRAZODONE 50MG TAKE 1 TABLET AT BEDTIME 5. ELIQUIS 5MG TAKE 1 TABLET 2 TIMES A DAY 6. LASIX 40MG PO DAILY [facility] HAS BEEN NOTIFIED OF YOUR DISCHARGE. [facility] WILL CALL YOU WITH AN APPOINTMENT DATE AND TIME. KEEP YOUR APPOINTMENT ON 07/28/17 WITH YOUR PRIMARY CARE PHYSICIAN KEEP SCHEDULED APPOINTMENT WITH DR. BAEZ. CLEAN WOUNDS WITH MILD SOAP AND WATER. DRY THOROUGHLY. APPLY BACTROBAN 2 TIMES A DAY. SITTING ON SIDE OF BED. ALERT AND ORIENTED X 4. Duane PEREZ APRN INTO SEE PATIENT. PATIENT STATES FEELING BETTER AND IS READY TO GO HOME. PLAN OF CARE DISCUSSED PER Duane PEREZ APRN INCLUDING POSSIBLE DISCHARGE INSTRUCTIONS OF MEDICATIONS, WOUND CARE, KEEPING LEGS ELEVATED AND FOLLOW UP APPOINTMENTS. PATIENT VERBALIZES UNDERSTANDING AND AGREEMENTS. APPETITE IS GOOD. REMAINS ON 1500ML FLUID RESTRICTION. VITAL SIGNS ARE STABLE. IS AFEBRILE. POS 93% ON ROOM AIR. HEART TONES ARE IRREGULAR WITH TELEMETRY REVEALING A-FIB. LUNGS ARE CLEAR WITH DIMINISHED BREATH SOUNDS. NO COUGH NOTED. ABDOMEN IS ROUNDED, NON-TENDER WITH BOWEL SOUNDS POSITIVE IN ALL 4 QUADS. IS UNABLE TO LIE FLAT DUE TO ABDOMEN PUTTING PRESSURE AND CAUSING DYSPNEA. LAST BM 07/25. PEDAL PULSES ARE POSITIVE WITH TRACE EDEMA TO LEFT LOWER EXTREMITY AND NO EDEMA NOTED TO RIGHT LOWER EXTREMITY. ENCOURAGED TO KEEP LEGS ELEVATED MUCH POSSIBLE. WOUNDS: LEFT LOWER CALF A STAGE 2 MEASURING 7CM/2CM. IS PINK AND EDEMATOUS WITH NO DRAINAGE NOTED. AREA IS SCABBED. LEFT MID CALF A STAGE 2 MEASURING 3CM/3CM. IS PINK AND EDEMATOUS WITH NO DRAINAGE NOTED. AREA IS SCABBED. LEFT UPPER CALF A STAGE 2 MEASURING 3CM/4CM. IS BRIGHT RED AND EDEMATOUS WITH SEROSANGUINEOUS DRAINAGE NOTED. RIGHT UPPER CALF A STAGE 2 MEASURING 5CM/5.5CM. IS PINK/DARK RED AND EDEMATOUS WITH SEROSANGUINEOUS DRAINAGE NOTED. HAS SALINE IN LEFT FOREARM SITE IS CLEAR. IS STANDBY ASSIST WITH STRAIGHT CANE. DR. GIANNI MULLEN MD Duane PEREZ APRN
--- NOTE | 2017-07-26 11:44 | PN ---
DATE OF SERVICE: 07/25/17 SUBJECTIVE: 82 year old white male hospitalized with ulcers in the legs, peripheral arterial disease, ascites with liver cirrhosis. The patient eat a lot and drinks a lot of fluid. It is still explained about liver cirrhosis and ascites and advised to cut down on his fluid intake which is noncompliant. REVIEW OF SYSTEMS: CONSTITUTIONAL: No night sweats. No fatigue, malaise, lethargy. No fever or chills. Says that he is feeling a lot better. HEENT: Eyes: No visual changes. No eye pain. No eye discharge. ENT: No runny nose. No epistaxis. No sinus pain. No sore throat. No odynophagia. No congestion. RESPIRATORY: No cough, no congestion. No hemoptysis. No shortness of breath. CARDIOVASCULAR: No angina symptoms. No CHF symptoms. No atypical chest pain for CAD. No palpitations. No orthopnea. GASTROINTESTINAL: No abdominal pain. No nausea or vomiting. No diarrhea or constipation. No hematemesis. No hematochezia. GENITOURINARY: No urgency. No frequency. No dysuria. No hematuria. No obstructive symptoms. No discharge. No pain. No significant abnormal bleeding. MUSCULOSKELETAL: No musculoskeletal pain; no joint swelling. NEUROLOGICAL: No headache. No neck pain. No syncope. No seizures. No dizziness. PSYCHIATRIC: Not anxious. No depression. No suicidal thoughts. No homicidal thoughts. SKIN: No rash. No lesions. No wounds. ENDOCRINE: No unexplained weight loss. No weight gain. HEMATOLOGIC/LYMPHATIC: No anemia. No purpura. No petechiae. No prolonged or excessive bleeding. No palpable lymph nodes. PHYSICAL EXAMINATION: GENERAL: The patient is oriented to time, place and person. VITAL SIGNS: Temperature 97.9, pulse 60, respiratory rate 16, blood pressure 142/69 and pulse ox 92% on room air. HEENT: Head normocephalic, atraumatic. Eyes: Extraocular muscles are intact. Pupils are equal, round and reactive to light and accommodation. Ears: No lesions. Nose appeared normal. Throat: No exudate or erythema. NECK: Supple. No JVD, no carotid bruit. No lymphadenopathy or thyromegaly. LUNGS: Decreased breath sounds but clear. Percussion note normal. Chest symmetrical. HEART: S1, S2, no S3. No murmurs. No cyanosis or clubbing. No ascites. Pulses: Dorsalis pedis and posterior tibial pulses +1 to +2 both sides. ABDOMEN: Soft. Nontender. Bowel sounds active. No CVA tenderness. No mass felt. EXTREMITIES: No edema. Full range of motion of all extremities, equal. NEUROLOGIC: No focal deficit. Cranial nerves II through XII are grossly intact. No headache, no double vision or headache. SKIN: Not dry. Intact. Turgor - normal. LYMPHATIC: No palpable lymph nodes/no lymphedema. MUSCULOSKELETAL: Normal joints with no swelling. Muscle tone is normal. LABS: Hgb 12.7, hct 38, potassium 5.2, creatinine 1.2, BUN 41. ASSESSMENT: 1. Liver cirrhosis with ascites, stable. He doesn't seem to be losing too much ascitic fluid. 2. He is noncompliant. PLAN: 1. Advised to put the legs up 2. Continue Aldactone and Lasix. Lasix to given IV 3. Kidney functions have become a little bit abnormal from aggressive diuretic therapy. 4. His blood sugars are also fluctuating but he is more or less under control with sliding scale 5. Again discussed about liver cirrhosis and prognosis. 6. His blood pressure seems to be under control 7. Kayexalate will given 25 grams 8. The patient has been taken off of Cozaar, Norvasc and Hydralazine. 9. Blood pressure seems to be well controlled. CONDITION: Stable. TIME SPENT: More than 30 minutes. Plan and coordination of the patient's care discussed in the presence of nurse. SHAHEEN
--- NOTE | 2017-07-26 11:49 | PN ---
DATE OF SERVICE: 07/24/17 SUBJECTIVE: 82 year old white male hospitalized with cellulitis of both lower extremities, likely it was more like edema with pigmentation. Dermitis with irritation of the skin. The patient ulcers are drying up and they are superficial. Explained to him about how to take care of the ulcers. He is be referred to Wound Care along with the followup with [facility] where his primary physician's are. REVIEW OF SYSTEMS: CONSTITUTIONAL: No night sweats. No fatigue, malaise, lethargy. No fever or chills. HEENT: Eyes: No visual changes. No eye pain. No eye discharge. ENT: No runny nose. No epistaxis. No sinus pain. No sore throat. No odynophagia. No congestion. RESPIRATORY: No cough, no congestion. No hemoptysis. No shortness of breath. CARDIOVASCULAR: No angina symptoms. No CHF symptoms. No atypical chest pain for CAD. No palpitations. No orthopnea. GASTROINTESTINAL: No abdominal pain. No nausea or vomiting. No diarrhea or constipation. No hematemesis. No hematochezia. GENITOURINARY: No urgency. No frequency. No dysuria. No hematuria. No obstructive symptoms. No discharge. No pain. No significant abnormal bleeding. MUSCULOSKELETAL: No musculoskeletal pain; no joint swelling. NEUROLOGICAL: No headache. No neck pain. No syncope. No seizures. No dizziness. PSYCHIATRIC: Not anxious. No depression. No suicidal thoughts. No homicidal thoughts. SKIN: No rash. No lesions. No wounds. ENDOCRINE: No unexplained weight loss. No weight gain. HEMATOLOGIC/LYMPHATIC: No anemia. No purpura. No petechiae. No prolonged or excessive bleeding. No palpable lymph nodes. PHYSICAL EXAMINATION: HEENT: Head normocephalic, atraumatic. Eyes: Extraocular muscles are intact. Pupils are equal, round and reactive to light and accommodation. Ears: No lesions. Nose appeared normal. Throat: No exudate or erythema. NECK: Supple. No JVD, no carotid bruit. No lymphadenopathy or thyromegaly. LUNGS: Clear to auscultation. Percussion note normal. Chest symmetrical. HEART: S1, S2, no S3. No murmurs. No cyanosis or clubbing. No ascites. Pulses: Dorsalis pedis and posterior tibial pulses +1 to +2 both sides. ABDOMEN: Soft. Nontender. Bowel sounds active. No CVA tenderness. No mass felt. EXTREMITIES: No edema. Full range of motion of all extremities, equal. NEUROLOGIC: No focal deficit. Cranial nerves II through XII are grossly intact. No headache, no double vision or headache. SKIN: Not dry. Intact. Turgor - normal. LYMPHATIC: No palpable lymph nodes/no lymphedema. MUSCULOSKELETAL: Normal joints with no swelling. Muscle tone is normal. LABS: Hgb 12.7, hct 38, WBC 8,800 normal differential, creatinine 1.2. ASSESSMENT: 1. Liver cirrhosis with ascites, stable PLAN: 1. Continue IV Lasix and Aldactone 2. Watch for potassium 3. Educated him about ulcers, ulcers healing up and is going to take awhile 4. The patient needs arterial studies. 5. Ammonia level was acceptable 6. The patient is going to do echocardiogram to evaluate LV function. CONDITION: Stable. TIME SPENT: More than 30 minutes. Plan and coordination of the patient's care discussed in the presence of nurse. SHAHEEN
--- NOTE | 2017-07-27 11:02 | PN ---
DATE OF SERVICE: 07/22/17 SUBJECTIVE: This is an 82-year-old white male hospitalized with hypoglycemia. The patient has several other problems like foot ulcers, cellulitis, possible lower leg ascites with liver cirrhosis. The patient's condition seems to be improving. The liver showed cirrhosis of the liver. 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 I discussed with the patient. The patient is hard of hearing. REVIEW OF SYSTEMS: CONSTITUTIONAL: No night sweats. No fatigue, malaise, lethargy. No fever or chills. HEENT: Eyes: No visual changes. No eye pain. No eye discharge. ENT: No runny nose. No epistaxis. No sinus pain. No sore throat. No odynophagia. No congestion. RESPIRATORY: No cough, no congestion. No hemoptysis. No shortness of breath. CARDIOVASCULAR: No angina symptoms. No CHF symptoms. No atypical chest pain for CAD. No palpitations. No orthopnea. GASTROINTESTINAL: No abdominal pain. No nausea or vomiting. No diarrhea or constipation. No hematemesis. No hematochezia. GENITOURINARY: No urgency. No frequency. No dysuria. No hematuria. No obstructive symptoms. No discharge. No pain. No significant abnormal bleeding. MUSCULOSKELETAL: No musculoskeletal pain; no joint swelling. NEUROLOGICAL: No headache. No neck pain. No syncope. No seizures. No dizziness. PSYCHIATRIC: Not anxious. No depression. No suicidal thoughts. No homicidal thoughts. SKIN: No rash. No lesions. No wounds. ENDOCRINE: No unexplained weight loss. No weight gain. HEMATOLOGIC/LYMPHATIC: No anemia. No purpura. No petechiae. No prolonged or excessive bleeding. No palpable lymph nodes. PHYSICAL EXAMINATION: GENERAL: The patient is oriented to time, place and person. VITAL SIGNS: Temperature 98.5, pulse 55, respiratory rate 16, BP 115/59, pulse ox 93%. HEENT: Head normocephalic, atraumatic. Eyes: Extraocular muscles are intact. Pupils are equal, round and reactive to light and accommodation. Ears: No lesions. Nose appeared normal. Throat: No exudate or erythema. NECK: Supple. No JVD, no carotid bruit. No lymphadenopathy or thyromegaly. LUNGS: Decreased breath sounds. Clear to auscultation. Percussion note normal. Chest symmetrical. HEART: S1, S2, no S3. No murmurs. No cyanosis or clubbing. No ascites. Pulses: Dorsalis pedis and posterior tibial pulses +1 to +2 both sides. ABDOMEN: Soft. Nontender. Bowel sounds active. No CVA tenderness. No mass felt. EXTREMITIES: Trace edema noted. The color of the lower extremity looks a lot better. Transdorsal amputation of the left foot noted. Full range of motion of all extremities, equal. NEUROLOGIC: No focal deficit. Cranial nerves II through XII are grossly intact. No headache, no double vision or headache. SKIN: Not dry. Intact. Turgor - normal. LYMPHATIC: No palpable lymph nodes/no lymphedema. MUSCULOSKELETAL: Normal joints with no swelling. Muscle tone is normal. LABS: Hemoglobin 12.6, hematocrit 38, WBC 9,800, normal differential. Kidney function is 1.238, seems to have improved. ASSESSMENT: 1. CELLULITIS OF THE LOWER EXTREMITY 2. HYPOGLYCEMIA RIGHT NOW COVERED WITH SLIDING SCALE 3. ASCITES WITH LIVER CIRRHOSIS 4. CONGESTIVE HEART FAILURE 5. ATRIAL FIBRILLATION PLAN: Atrial fibrillation discussed with the patient. CHADS2 score is more than 5. Strongly advised to take Eliquis. The patient is followed by [facility], strongly advised to followup with them. After discharge, the patient is strongly advised to followup with Wound Care. We are going to set up the appointment. CONDITION: Stable. EDUCATION CARRIED OUT ABOUT: Complications of diabetes mellitus, peripheral arterial disease. Also discussed about eyes and effect of diabetes on the eyes. CHF discussed. Liver cirrhosis complications discussed. Also will do ammonia level as baseline. CONDITION: Stable. TIME SPENT: More than 30 minutes. Plan and coordination of the patient's care discussed in the presence of nurse. SHAHEEN
--- NOTE | 2017-07-27 11:05 | PN ---
CODING FOR BILLIN07/21/17 AND 07/22/17 - THE PATIENT IS EXTENSIVE FOR THESE DATES. THE PATIENT WAS HOSPITALIZED ON 07/20. TIME SPENT MORE THAN 60 MINUTES. SHAHEEN
--- NOTE | 2017-07-27 13:39 | PN ---
DATE OF SERVICE: 07/23/17 The patient's weight done on admission is incorrect. According to that weight, the patient has gained 20 lbs (which he has not) and on the contrary, patient's ascites is much less, is leg edema is much less and is feeling better. The weight on admission was incorrect! MTDD
--- NOTE | 2017-07-27 15:56 | DS ---
DATE OF SERVICE: 07/26/17 FINAL DIAGNOSIS: 1. HYPOGLYCEMIA 2. LIVER CIRRHOSIS WITH ASCITES 3. DERMATITIS WITH BILATERAL DEPENDENT EDEMA AND ULCERS IN BOTH LEGS ( POSSIBLE CELLULITIS) 4. DILATED CARDIOMYOPATHY 5. DIABETES MELLITUS TYPE 2 6. DYSLIPIDEMIA 7. HYPERTENSION 8. ATRIAL FIBRILLATION 9. PAD 10. GENERALIZED OSTEOARTHRITIS 11. PARTIAL AMPUTATION LEFT FOOT 12. COPD DISCHARGE INSTRUCTIONS: Followup appointment: Keep appointment on 07/28/17 with your primary care physician. Keep scheduled appointment with Dr. Eldridge. Clean wounds with mild soap and water. Dry thoroughly, apply Bactroban two times a day. MEDICATIONS AT DISCHARGE: Norvasc 5 mg p.o. bedtime ANGELI Eliquis 5 mg p.o. b.i.d. ANGELI Aspirin 81 mg p.o. daily with meal ANGELI Lotrisone 15 gm one application TP 0600, 1800 ANGELI Cardura 4 mg p.o. bedtime ANGELI Apresoline 25 mg p.o. q.12h ANGELI Crestor 5 mg p.o. bedtime ANGELI Aldactone 25 mg p.o. b.i.d. ANGELI Trazodone 50 mg p.o. bedtime ANGELI Lasix 40 mg p.o. daily MEDICATION CHANGES: Decrease Norvasc to 5 mg daily - take 1/2 of your tablet Increase Aldactone to 25 mg two times a day - take one in a.m and one at bedtime of your tablets Do not take Xarelto Do not take Amoxicillin/Potassium Clav NEW PRESCRIPTIONS: Keflex 500 mg take one by mouth three times a day for 7 days until all gone Bactroban apply to wounds 2 times a day for 14 days Apresoline 25 mg take one tablet by mouth two times a day Trazodone 50 mg take one tablet at bedtime Eliquis 5 mg take one tablet 2 times a day [facility] has been notified of your discharge. [facility] will call you with an appointment date and time. DIET INSTRUCTIONS: Heart Healthy ACTIVITY: As patient tolerates. Keep legs elevated at rest. SMOKING: N/A DISEASE SPECIFIC EDUCATION: Medications Wound Care Keeping legs elevated Followup appointments HOSPITAL COURSE: This is an 82-year-old white male who presented to the emergency room with low grade fever, redness and increased swelling of both feet. The left foot has a partial amputation. He has a long history of uncontrolled diabetes mellitus, hypertension, history of atrial fibrillation. He has a long history of noncompliance. He reports that his current primary care provider is [facility]. It was also found that he had cirrhosis of the liver with mild ascites via CT scan. He also has a nodule on his lung for which he sees Dr. Eldridge pulmonology in [place]. Venous Scan was negative. Both lower extremities presented with cellulitis, low grade fever. He was placed on routine telemetry. His strips showed atrial fibrillation. He was placed on Rocephin 1 gm IV daily , started on Lasix 40 mg IV daily, Vasotec 1.25 mg q.8hr for elevated blood pressure. He had previously been on Xarelto but had quit taking it. He was on a low dose of 15 mg. We switched him to Eliquis 5 mg p.o. b.i.d. He was placed on sliding scale insulin. We increased his Aldactone to 25 mg p.o. b.i.d. Over the course of several days an extra Lasix given, the swelling has improved. Today, on day of discharge, he has trace swelling of the left lower extremity and no swelling in the right lower extremity. He does have some mild erythema which is chronic due to chronic swelling. On admission he had severe edema with weeping of the legs. This has since resolved. He has a 2 x 3" ulceration on the back of his left calf which is now scabbed. A wound culture was done and sensitive to the Rocephin showed Proteus. His kidney function slowly resolved with IV fluids. He did have bout with hyperkalemia at 5.6 for which he was given Kayexalate on Wednesday. Today on day of discharge, potassium is down. WE discontinued his Cozaar as it was thought to be potassium sparing along with his Aldactone. Cozaar was discontinued and Apresoline 25 mg b.i.d. was started. New medications for him to go home on would be Eliquis 5 mg b.i.d. along with Aldactone increased to 25 mg b.i.d. due to ascites. Continue the Apresoline 25 mg b.i.d. An ammonia level was done on Wednesday which was within normal limits and at 20. He will also be discharged home on Keflex 500 mg t.i.d. for the next 7 days and Bactroban b.i.d. for the next 2 weeks. He does have an appointment. We referred him to wound care for which he states he will come down here for wound care once a week. ,They are to make an appointment with him on Wednesday as he is being discharged home on Wednesday. He also has a previously scheduled appointment with this primary care provider in [place] on Wednesday. The patient agreed to keep that appointment and he also has an appointment with Dr. Eldridge, the fabric worker supervisor in [place] already scheduled for the . The patient demonstrates understanding of these medications and his disease processes. The risk of bleeding, intracranial bleed and GI bleed were discussed with him in detail regarding Eliquis use. He was instructed that he needs to be on a 1500 cc fluid restriction due to the ascites. This disease process was discussed with him. He demonstrates understanding although he has a long history of noncompliance. We will discharge him back to his primary care physician and he will followup with him there along with Wound Care and Pulmonology. The patient is discharged today in stable condition with improved kidney function, stable fluid and electrolyte levels and stable hemoglobin. Again, his leg swelling and redness is significantly improved with no swelling on the right and trace edema on the left with just residual erythema which is chronic. The patient has been afebrile. He has been up and about in his chair. He has been eating 75% to 100% of his meals. TIME SPENT: More than 60 minutes. SHAHEEN
--- NOTE | 2017-07-28 08:07 | ECHO2D ---
Date of Exam: 07/26/17 Ordering Physician: GIANNI MULLEN MD Reason for Echo: CONGESTIVE HEART FAILURE M-Mode Normal Adult Results LV Dimensions Normal Adult Results AoV Opening excursions >1.6 >1.6 LVEDD-base- 3.5-5.8 6.5 Ao root dimensions 2.0-3.7 3.1 LVESD-base- 3.1-4.6 L. Atrium dimensions 1.9-3.8 5.2 Post. Wall thickness 0.8-1.1 1.2 IV septum (thickness) 0.7-1.2 1.3 Post. Wall excursion 0.72-1.3 0.7 Septal motion 0.2 Systolic motion R. Ventricular cavity 1.5-2.0 NORMAL LVEF 60% 29% Paradoxical septal wall motion MAYBE 2-D : DILATED LEFT VENTRICULAR AND LEFT ATRIAL AND RIGHT VENTRICULAR CAVITIES. HYPOKINETIC LEFT VENTRICLE, NORMAL VALVES, NO EFFUSION, NO THROMBUS M-MODE: MV: NORMAL AV: NORMAL TV: NORMAL PV: NORMAL CHAMBER SIZE: ENLARGED LEFT VENTRICULAR, LEFT ATRIAL AND RIGHT VENTRICULAR CAVITIES WALL MOTION: HYPOKINETIC LEFT VENTRICLE PERICARDIUM: NORMAL INTERPRETATION: 1. LEFT VENTRICULAR HYPERTROPHY WITH ENLARGED LEFT ATRIAL CAVITY 2. DILATED LEFT VENTRICULAR AND RIGHT VENTRICULAR CAVITIES 3. HYPOKINETIC LEFT VENTRICLE WITH EF 29% 4. VALVES NORMAL COPY TO PRIMARY MD AT [facility], DR CHRISTOPHER [facility]
--- NOTE | 2017-07-28 13:32 | PN ---
DATE OF SERVICE: 07/27/17 DISCHARGE NOTE SUBJECTIVE: 82 year old white male hospitalized with hypoglycemia. The patient was picked up by the [facility] because he was found to be confused. The patient in the emergency room was noted to have pigmentation of both lower extremities. On further examination it was more like dermatitis from chronic dependant edema. There was no evidence of cellulitis but he had 2 ulcers. According to the patient the patient had blisters at the time when he started taking blood thinners, Xarelto. In any case the blisters were likely from leg edema. Ulcers were firm on both legs. During the stay in the hospital the seem to be healing up and he was treated with antibiotics. Vancomycin initially with the Rocephin. He was put on Keflex. At the time of discharge the patient was explained about and taught about how to take care of his ulcers. He was advised to keep his legs up. During the stay in the hospital the patient was found to have liver cirrhosis with ascites. He has been put on Aldactone and Lasix combination. His liver cirrhosis could be from chronic congestive heart failure and or hepatic steatosis and/or alcohol abuse a long time ago. The patient also had an echocardiogram done which showed dilated cardiomyopathy with ejection fraction of 30% with borderline LVH and markedly enlarged LA cavity. The patient didn't tolerate any maria isabel inhibitor or ERB because of his liver cirrhosis. With Aldactone he started having hyperkalemia, ERB and maria isabel inhibitors were taken off. At present time he is on Norvasc, Hydralazine combination along with Lasix , Aldactone. He needs to have his Potassium checked periodically. His other problem seems to be peripheral arterial disease and diabetes mellitus. At the time of discharge the patient's condition was stable. He was educated about liver cirrhosis, ascites, peripheral arterial disease and about his heart conditions. The patient dependants upon his friend, Elodia in order to take his medications. He has very poor knowledge about his medical conditions. He is noncompliant. His prognosis is not good considering his multiple medical problems with his noncompliance. The patient is strongly advised to go to [facility] where his primary physician is. TIME SPENT: More than 30 minutes. ADDENDUM: 82 year old white male being discharged a lot of improvement in his dermitis of both lower extremity with no evidence of any infection. His ulcers had dried up and he was explained about peripheral arterial disease, diabetes mellitus. Need to have arterial studies done but he declined to be scheduled for arterial study anywhere in this area. The patient is on Eliquis because of his atrial fibrillation. Discussed the side effects of Eliquis which is GI bleed, intracranial bleed and he was strongly advised not to take non-steroidal anti- inflammatory. The patient refuses to take Xarelto. Atrial fibrillation complications discussed with him. Plan and coordination of the patient's care discussed in the presence of nurse. SHAHEEN
--- NOTE | 2017-07-28 14:19 | PN ---
07/20/17: Level 5 07/21/17: Extensive 07/22/17: Extensive 07/23/17: Intermediate 07/24/17: Intermediate 07/25/17: Intermediate 07/26/17: D as in discharge MTDD
== END 2017-07-26 12:00 | disposition home or self-care (01) | DRG 638 ==
LOC: ED 12:09 → MEDSURG B 15:01
PROVIDERS: ADMIT Internal Medicine; ATTEND Internal Medicine
DX: E11.649 Type 2 diabetes mellitus with hypoglycemia without coma (principal); E46 Unspecified protein-calorie malnutrition; R18.8 Other ascites; I42.0 Dilated cardiomyopathy; L97.221 Non-pressure chronic ulcer of left calf limited to breakdown of skin; L97.911 Non-pressure chronic ulcer of unspecified part of right lower leg limited to breakdown of skin; I50.9 Heart failure, unspecified; I48.91 Unspecified atrial fibrillation; K74.60 Unspecified cirrhosis of liver; I51.7 Cardiomegaly; R91.1 Solitary pulmonary nodule; K76.0 Fatty (change of) liver, not elsewhere classified; I10 Essential (primary) hypertension; I73.9 Peripheral vascular disease, unspecified; M15.9 Polyosteoarthritis, unspecified; J44.9 Chronic obstructive pulmonary disease, unspecified; E78.5 Hyperlipidemia, unspecified; R41.0 Disorientation, unspecified; R35.8 Other polyuria; R11.0 Nausea; Z89.432 Acquired absence of left foot; Z16.11 Resistance to penicillins; Z91.19 Patient's noncompliance with other medical treatment and regimen; B96.89 Other specified bacterial agents as the cause of diseases classified elsewhere; Z79.899 Other long term (current) drug therapy; Z79.4 Long term (current) use of insulin
CPT/HCPCS: 36415; 80053; 80202; 81050; 82140; 82550; 82803; 82962; 83036; 83605; 83880; 84145; 84156; 84439; 84443; 84484; 85025; 85610; 85730; 86803; 87040; 87070; 87081; 87186; 93005; 93010; 96365; 96375; 97802; 99284

== ENCOUNTER 2017-08-04 09:08 | Outpatient (CLI) | END 2017-08-04 09:09 | disposition home or self-care (01) | LOC: WOUND 09:08 | PROVIDERS: ATTEND Nurse Practitioner Family | DX: E11.621 Type 2 diabetes mellitus with foot ulcer (principal); L97.512 Non-pressure chronic ulcer of other part of right foot with fat layer exposed; I87.312 Chronic venous hypertension (idiopathic) with ulcer of left lower extremity; L97.222 Non-pressure chronic ulcer of left calf with fat layer exposed; I10 Essential (primary) hypertension; I48.91 Unspecified atrial fibrillation; R60.0 Localized edema; E78.5 Hyperlipidemia, unspecified | CPT/HCPCS: 11042; 11045; 99202 ==

== ENCOUNTER 2017-08-11 08:57 | Outpatient (CLI) | END 2017-08-11 08:58 | disposition home or self-care (01) | LOC: WOUND 08:57 | PROVIDERS: ATTEND Nurse Practitioner Family | DX: E11.621 Type 2 diabetes mellitus with foot ulcer (principal); L97.512 Non-pressure chronic ulcer of other part of right foot with fat layer exposed; I87.312 Chronic venous hypertension (idiopathic) with ulcer of left lower extremity; L97.222 Non-pressure chronic ulcer of left calf with fat layer exposed; I10 Essential (primary) hypertension; I48.91 Unspecified atrial fibrillation; R60.0 Localized edema; E78.5 Hyperlipidemia, unspecified | CPT/HCPCS: 87070; 87186 ==

== ENCOUNTER 2017-08-18 08:52 | Outpatient (CLI) | END 2017-08-18 08:53 | disposition home or self-care (01) | LOC: WOUND 08:52 | PROVIDERS: ATTEND Nurse Practitioner Family | DX: E11.621 Type 2 diabetes mellitus with foot ulcer (principal); L97.512 Non-pressure chronic ulcer of other part of right foot with fat layer exposed; I87.312 Chronic venous hypertension (idiopathic) with ulcer of left lower extremity; L97.222 Non-pressure chronic ulcer of left calf with fat layer exposed; I10 Essential (primary) hypertension; I48.91 Unspecified atrial fibrillation; R60.0 Localized edema; E78.5 Hyperlipidemia, unspecified | CPT/HCPCS: 11042; 97597 ==

== ENCOUNTER 2017-08-25 09:01 | Outpatient (CLI) | END 2017-08-25 09:02 | disposition home or self-care (01) | LOC: WOUND 09:01 | PROVIDERS: ATTEND Nurse Practitioner Family | DX: E11.621 Type 2 diabetes mellitus with foot ulcer (principal); L97.512 Non-pressure chronic ulcer of other part of right foot with fat layer exposed; I87.312 Chronic venous hypertension (idiopathic) with ulcer of left lower extremity; L97.222 Non-pressure chronic ulcer of left calf with fat layer exposed; I10 Essential (primary) hypertension; I48.91 Unspecified atrial fibrillation; R60.0 Localized edema; E78.5 Hyperlipidemia, unspecified | CPT/HCPCS: 11042 ==

== ENCOUNTER 2017-09-01 08:47 | Outpatient (CLI) | payer OTHER | END 2017-09-01 08:48 | disposition home or self-care (01) | LOC: WOUND 08:47 | PROVIDERS: ATTEND Nurse Practitioner Family | DX: E11.621 Type 2 diabetes mellitus with foot ulcer (principal); L97.512 Non-pressure chronic ulcer of other part of right foot with fat layer exposed; I87.312 Chronic venous hypertension (idiopathic) with ulcer of left lower extremity; L97.222 Non-pressure chronic ulcer of left calf with fat layer exposed; I10 Essential (primary) hypertension; I48.91 Unspecified atrial fibrillation; R60.0 Localized edema; E78.5 Hyperlipidemia, unspecified ==

== ENCOUNTER 2017-09-08 08:35 | Outpatient (CLI) ==
--- NOTE | 2017-09-08 10:32 | DI ---
Exam: Three x-rays of the right foot. Comparison: None available. Reason for exam: Ulcer right foot attention first metatarsal. FINDINGS: No acute fracture or malalignment. The joint spaces are relatively well maintained with m ild to moderate degenerative disease in the midfoot and calcaneus. No obvious erosive changes are se en within the imaged osseous structures. Impression: 1. No acute fracture or malalignment is seen in the right foot. 2. Mild to moderate degenerative disease. 3. If clinical concern exists for osteomyelitis, MRI may be performed.
== END 2017-09-08 08:36 | disposition home or self-care (01) ==
LOC: WOUND 08:35
PROVIDERS: ATTEND Nurse Practitioner Family
DX: E11.621 Type 2 diabetes mellitus with foot ulcer (principal); L97.512 Non-pressure chronic ulcer of other part of right foot with fat layer exposed; I87.312 Chronic venous hypertension (idiopathic) with ulcer of left lower extremity; L97.222 Non-pressure chronic ulcer of left calf with fat layer exposed; I10 Essential (primary) hypertension; I48.91 Unspecified atrial fibrillation; R60.0 Localized edema; E78.5 Hyperlipidemia, unspecified

== ENCOUNTER 2017-09-15 08:40 | Outpatient (CLI) | END 2017-09-15 08:41 | disposition home or self-care (01) | LOC: WOUND 08:40 | PROVIDERS: ATTEND Nurse Practitioner Family | DX: E11.621 Type 2 diabetes mellitus with foot ulcer (principal); L97.512 Non-pressure chronic ulcer of other part of right foot with fat layer exposed; I87.312 Chronic venous hypertension (idiopathic) with ulcer of left lower extremity; L97.222 Non-pressure chronic ulcer of left calf with fat layer exposed; I10 Essential (primary) hypertension; I48.91 Unspecified atrial fibrillation; R60.0 Localized edema; E78.5 Hyperlipidemia, unspecified | CPT/HCPCS: 11042; 87070; 87186; 99213 ==

== ENCOUNTER 2017-09-22 08:59 | Outpatient (CLI) | END 2017-09-22 09:00 | disposition home or self-care (01) | LOC: WOUND 08:59 | PROVIDERS: ATTEND Nurse Practitioner Family | DX: E11.621 Type 2 diabetes mellitus with foot ulcer (principal); L97.512 Non-pressure chronic ulcer of other part of right foot with fat layer exposed; I87.312 Chronic venous hypertension (idiopathic) with ulcer of left lower extremity; L97.222 Non-pressure chronic ulcer of left calf with fat layer exposed; I10 Essential (primary) hypertension; I48.91 Unspecified atrial fibrillation; R60.0 Localized edema; E78.5 Hyperlipidemia, unspecified | CPT/HCPCS: 11042; 99213 ==

== ENCOUNTER 2017-09-29 08:41 | Outpatient (CLI) | payer OTHER | END 2017-09-29 08:42 | disposition home or self-care (01) | LOC: WOUND 08:41 | PROVIDERS: ATTEND Nurse Practitioner Family | DX: E11.621 Type 2 diabetes mellitus with foot ulcer (principal); L97.512 Non-pressure chronic ulcer of other part of right foot with fat layer exposed; I87.312 Chronic venous hypertension (idiopathic) with ulcer of left lower extremity; L97.222 Non-pressure chronic ulcer of left calf with fat layer exposed; I10 Essential (primary) hypertension; I48.91 Unspecified atrial fibrillation; R60.0 Localized edema; E78.5 Hyperlipidemia, unspecified; S80.811S Abrasion, right lower leg, sequela ==

== ENCOUNTER 2017-10-06 09:00 | Outpatient (CLI) | END 2017-10-06 09:01 | disposition home or self-care (01) | LOC: WOUND 09:00 | PROVIDERS: ATTEND Nurse Practitioner Family | DX: E11.621 Type 2 diabetes mellitus with foot ulcer (principal); L97.512 Non-pressure chronic ulcer of other part of right foot with fat layer exposed; S80.811S Abrasion, right lower leg, sequela; I10 Essential (primary) hypertension; I48.91 Unspecified atrial fibrillation; R60.0 Localized edema; E78.5 Hyperlipidemia, unspecified ==

== ENCOUNTER 2017-10-13 08:43 | Outpatient (CLI) | END 2017-10-13 08:44 | disposition home or self-care (01) | LOC: WOUND 08:43 | PROVIDERS: ATTEND Nurse Practitioner Family | DX: E11.621 Type 2 diabetes mellitus with foot ulcer (principal); L97.512 Non-pressure chronic ulcer of other part of right foot with fat layer exposed; S80.811S Abrasion, right lower leg, sequela; I10 Essential (primary) hypertension; I48.91 Unspecified atrial fibrillation; R60.0 Localized edema; E78.5 Hyperlipidemia, unspecified ==

== ENCOUNTER 2017-10-20 08:43 | Outpatient (CLI) | END 2017-10-20 08:44 | disposition home or self-care (01) | LOC: WOUND 08:43 | PROVIDERS: ATTEND Nurse Practitioner Family | DX: E11.621 Type 2 diabetes mellitus with foot ulcer (principal); L97.512 Non-pressure chronic ulcer of other part of right foot with fat layer exposed; S80.811S Abrasion, right lower leg, sequela; I10 Essential (primary) hypertension; I48.91 Unspecified atrial fibrillation; R60.0 Localized edema; E78.5 Hyperlipidemia, unspecified | CPT/HCPCS: 87070 ==

== ENCOUNTER 2017-10-21 07:07 | Outpatient (CLI) ==
--- NOTE | 2017-10-21 14:45 | NM ---
EXAM: Three-phase bone scan HISTORY: Right foot ulcer, left toes amputated, open wound right great toe COMPARISON: Radiographs of the right foot on 09/08/2017 showed no fracture. Mild to moderate degener ative disease. TECHNIQUE: Patient was injected 25.4 mCi of technetium 99m HDP intravenously. Flow study of the feet was acquired in anterior projection, followed by blood pool images. Delayed images were obtained 3 h ours later. FINDINGS: There has been amputation of the left toes. Hyperemia is present in the right toes. There is a focus of increased blood pool activity in the right great toe. Delayed images demonstrate focu s of increased activity in the right great toe. A small focal activity in the soft tissues of the rig ht lower extremity laterally is of uncertain etiology. IMPRESSION: Focal osteomyelitis right great toe.
== END 2017-10-21 07:08 | disposition home or self-care (01) ==
LOC: RAD 07:07
PROVIDERS: ATTEND Nurse Practitioner Family
DX: L97.512 Non-pressure chronic ulcer of other part of right foot with fat layer exposed (principal); R60.0 Localized edema; E11.621 Type 2 diabetes mellitus with foot ulcer
CPT/HCPCS: 36415; 80048; 84134; 85025; 85651

== ENCOUNTER 2017-10-27 08:56 | Outpatient (CLI) | payer OTHER | END 2017-10-27 08:57 | disposition home or self-care (01) | LOC: WOUND 08:56 | PROVIDERS: ATTEND Nurse Practitioner Family | DX: E11.621 Type 2 diabetes mellitus with foot ulcer (principal); L97.512 Non-pressure chronic ulcer of other part of right foot with fat layer exposed; S80.811S Abrasion, right lower leg, sequela; I10 Essential (primary) hypertension; I48.91 Unspecified atrial fibrillation; R60.0 Localized edema; E78.5 Hyperlipidemia, unspecified; I87.313 Chronic venous hypertension (idiopathic) with ulcer of bilateral lower extremity; L97.812 Non-pressure chronic ulcer of other part of right lower leg with fat layer exposed; L97.821 Non-pressure chronic ulcer of other part of left lower leg limited to breakdown of skin; M86.18 Other acute osteomyelitis, other site | CPT/HCPCS: 11042; 99214 ==

== ENCOUNTER 2017-11-03 08:13 | Outpatient (CLI) | END 2017-11-03 08:14 | disposition home or self-care (01) | LOC: WOUND 08:13 | PROVIDERS: ATTEND Nurse Practitioner Family | DX: E11.621 Type 2 diabetes mellitus with foot ulcer (principal); L97.512 Non-pressure chronic ulcer of other part of right foot with fat layer exposed; S80.811S Abrasion, right lower leg, sequela; I10 Essential (primary) hypertension; I48.91 Unspecified atrial fibrillation; R60.0 Localized edema; E78.5 Hyperlipidemia, unspecified; I87.313 Chronic venous hypertension (idiopathic) with ulcer of bilateral lower extremity; L97.812 Non-pressure chronic ulcer of other part of right lower leg with fat layer exposed; L97.821 Non-pressure chronic ulcer of other part of left lower leg limited to breakdown of skin; M86.18 Other acute osteomyelitis, other site | CPT/HCPCS: 11042; 97597; 99212; 99213 ==

== ENCOUNTER 2017-11-10 08:40 | Outpatient (CLI) | END 2017-11-10 08:41 | disposition home or self-care (01) | LOC: WOUND 08:40 | PROVIDERS: ATTEND Nurse Practitioner Family | DX: E11.621 Type 2 diabetes mellitus with foot ulcer (principal); L97.512 Non-pressure chronic ulcer of other part of right foot with fat layer exposed; S80.811S Abrasion, right lower leg, sequela; I10 Essential (primary) hypertension; I48.91 Unspecified atrial fibrillation; R60.0 Localized edema; E78.5 Hyperlipidemia, unspecified; I87.313 Chronic venous hypertension (idiopathic) with ulcer of bilateral lower extremity; L97.812 Non-pressure chronic ulcer of other part of right lower leg with fat layer exposed; L97.821 Non-pressure chronic ulcer of other part of left lower leg limited to breakdown of skin; M86.18 Other acute osteomyelitis, other site | CPT/HCPCS: 11042; 99212 ==

== ENCOUNTER 2017-11-17 08:18 | Outpatient (CLI) | END 2017-11-17 08:19 | disposition home or self-care (01) | LOC: WOUND 08:18 | PROVIDERS: ATTEND Nurse Practitioner Family | DX: E11.621 Type 2 diabetes mellitus with foot ulcer (principal); L97.512 Non-pressure chronic ulcer of other part of right foot with fat layer exposed; S80.811S Abrasion, right lower leg, sequela; I10 Essential (primary) hypertension; I48.91 Unspecified atrial fibrillation; R60.0 Localized edema; E78.5 Hyperlipidemia, unspecified; I87.313 Chronic venous hypertension (idiopathic) with ulcer of bilateral lower extremity; L97.812 Non-pressure chronic ulcer of other part of right lower leg with fat layer exposed; L97.821 Non-pressure chronic ulcer of other part of left lower leg limited to breakdown of skin; M86.18 Other acute osteomyelitis, other site ==

== ENCOUNTER 2017-11-24 08:20 | Outpatient (CLI) | END 2017-11-24 08:21 | disposition home or self-care (01) | LOC: WOUND 08:20 | PROVIDERS: ATTEND Nurse Practitioner Family | DX: E11.621 Type 2 diabetes mellitus with foot ulcer (principal); L97.512 Non-pressure chronic ulcer of other part of right foot with fat layer exposed; S80.811S Abrasion, right lower leg, sequela; I10 Essential (primary) hypertension; I48.91 Unspecified atrial fibrillation; R60.0 Localized edema; E78.5 Hyperlipidemia, unspecified; I87.313 Chronic venous hypertension (idiopathic) with ulcer of bilateral lower extremity; L97.812 Non-pressure chronic ulcer of other part of right lower leg with fat layer exposed; L97.821 Non-pressure chronic ulcer of other part of left lower leg limited to breakdown of skin; M86.18 Other acute osteomyelitis, other site | CPT/HCPCS: 36415; 80053; 85007; 85025 ==

== ENCOUNTER 2017-12-01 08:52 | Outpatient (CLI) ==
--- NOTE | 2017-12-01 11:26 | DI ---
Exam: Three x-rays of the right foot. Comparison: 09/08/2017. Reason for exam: Osteomyelitis. FINDINGS: No acute fracture or dislocation. There is mild to moderate degenerative disease with liz nt space narrowing and osteophyte formation. No obvious fracture or malalignment. No osseous erosio ns are seen. Impression: 1. No obvious fracture or dislocation in the right foot. 2. Moderate degenerative disease. 3. If clinical concern exists for osteomyelitis, MRI may be performed for further characterization.
== END 2017-12-01 08:53 | disposition home or self-care (01) ==
LOC: WOUND 08:52
PROVIDERS: ATTEND Nurse Practitioner Family
DX: E11.621 Type 2 diabetes mellitus with foot ulcer (principal); L97.512 Non-pressure chronic ulcer of other part of right foot with fat layer exposed; S80.811S Abrasion, right lower leg, sequela; I10 Essential (primary) hypertension; I48.91 Unspecified atrial fibrillation; R60.0 Localized edema; E78.5 Hyperlipidemia, unspecified; I87.313 Chronic venous hypertension (idiopathic) with ulcer of bilateral lower extremity; L97.812 Non-pressure chronic ulcer of other part of right lower leg with fat layer exposed; L97.821 Non-pressure chronic ulcer of other part of left lower leg limited to breakdown of skin; M86.18 Other acute osteomyelitis, other site
CPT/HCPCS: 11042; 99212; 99213

== ENCOUNTER 2017-12-08 08:15 | Outpatient (CLI) | payer OTHER | END 2017-12-08 08:16 | disposition home or self-care (01) | LOC: WOUND 08:15 | PROVIDERS: ATTEND Nurse Practitioner Family | DX: E11.621 Type 2 diabetes mellitus with foot ulcer (principal); L97.512 Non-pressure chronic ulcer of other part of right foot with fat layer exposed; I10 Essential (primary) hypertension; I48.91 Unspecified atrial fibrillation; R60.0 Localized edema; E78.5 Hyperlipidemia, unspecified; I87.313 Chronic venous hypertension (idiopathic) with ulcer of bilateral lower extremity ==

== ENCOUNTER 2017-12-15 08:30 | Outpatient (CLI) | payer OTHER | END 2017-12-15 08:31 | disposition home or self-care (01) | LOC: WOUND 08:30 | PROVIDERS: ATTEND Nurse Practitioner Family | DX: E11.621 Type 2 diabetes mellitus with foot ulcer (principal); L97.512 Non-pressure chronic ulcer of other part of right foot with fat layer exposed; I10 Essential (primary) hypertension; I48.91 Unspecified atrial fibrillation; R60.0 Localized edema; E78.5 Hyperlipidemia, unspecified; I87.313 Chronic venous hypertension (idiopathic) with ulcer of bilateral lower extremity | CPT/HCPCS: 11042; 99214 ==

== ENCOUNTER 2017-12-22 08:13 | Outpatient (CLI) | payer OTHER | END 2017-12-22 08:14 | disposition home or self-care (01) | LOC: WOUND 08:13 | PROVIDERS: ATTEND Nurse Practitioner Family | DX: E11.621 Type 2 diabetes mellitus with foot ulcer (principal); L97.512 Non-pressure chronic ulcer of other part of right foot with fat layer exposed; I10 Essential (primary) hypertension; I48.91 Unspecified atrial fibrillation; R60.0 Localized edema; E78.5 Hyperlipidemia, unspecified; I87.313 Chronic venous hypertension (idiopathic) with ulcer of bilateral lower extremity | CPT/HCPCS: 11042; 99214 ==

== ENCOUNTER 2017-12-29 09:01 | Outpatient (CLI) | END 2017-12-29 09:02 | disposition home or self-care (01) | LOC: WOUND 09:01 | PROVIDERS: ATTEND Nurse Practitioner Family | DX: E11.621 Type 2 diabetes mellitus with foot ulcer (principal); L97.512 Non-pressure chronic ulcer of other part of right foot with fat layer exposed; I10 Essential (primary) hypertension; I48.91 Unspecified atrial fibrillation; R60.0 Localized edema; E78.5 Hyperlipidemia, unspecified; I87.313 Chronic venous hypertension (idiopathic) with ulcer of bilateral lower extremity | CPT/HCPCS: 11042; 99213 ==

== ENCOUNTER 2019-02-04 11:46 | Outpatient (CLI) | END 2019-02-04 11:59 | disposition short-term general hospital (02) | LOC: AMBL 11:46 | PROVIDERS: ATTEND Internal Medicine Geriatric Medicine | DX: T14.90XA Injury, unspecified, initial encounter (principal); M54.5 Low back pain; L89.899 Pressure ulcer of other site, unspecified stage; E11.65 Type 2 diabetes mellitus with hyperglycemia; I95.9 Hypotension, unspecified; Z79.4 Long term (current) use of insulin; W19.XXXA Unspecified fall, initial encounter ==